=== PATIENT | male | born 1985 | race Hispanic/Latino ===

== ENCOUNTER 2020-04-07 08:52 | Inpatient (IN) | payer SELFPAY ==
--- NOTE | ~2020-04-07 | XR_ITS ---
EXAMINATION: XR chest 1V portable DATE: 04/07/2020 09:26 INDICATION: Epigastric abdominal pain. TECHNIQUE: A single frontal view of the chest was obtained. COMPARISON: None. FINDINGS: There is mild scarring at the lung apices. No pleural effusion or pneumothorax. The heart s ize is normal. There is plate and screw fixation of left clavicle. IMPRESSION: 1. Mild scarring at the lung apices. Reviewed, dictated and finalized at location A. ING HEALTHCARE PRACTITIONER
--- NOTE | ~2020-04-07 | CT_ITS ---
EXAMINATION: CT abdomen pelvis w con EXAM DATE: 04/07/2020 09:53 INDICATION: Abdominal pain, nausea. TECHNIQUE: Spiral CT of the abdomen and pelvis was performed following intravenous injection of 100 m L Omnipaque 350. Axial, coronal and sagittal images were reviewed. The dose-length product (DLP) fo r this examination was 187.43 mGy-cm. The exposure was tailored according to patient size (auto mA e xposure control), and iterative reconstruction (ASIR) was used as additional dose reduction technique . There is no prior study for comparison. FINDINGS: There is a region of circumferential transverse colonic wall thickening just beyond the hep atic flexure, about 5 cm in length, appearance most consistent with adenocarcinoma. The cecum is dist ended proximal to this, is likely causing partial colonic obstruction. Small amount of colonic stool distal to this. Small cluster of mesenteric lymph nodes adjacent to this measuring up to 7 x 9 mm in size, upper limits of normal (see axial image 65). Appendix not specifically identified. Small amount of free pelvic fluid likely reactive. The liver, spleen, adrenal glands and pancreas are unremarkable. Gallbladder is unremarkable. No bi liary obstruction. Portal and splenic veins are patent. Kidneys enhance symmetrically. There is no hydronephrosis. The prostate is unremarkable. The bladder is unremarkable. The stomach and small bowel are unremarkable. No free intraperitoneal gas. The heart is normal in size. There are no pericardial or pleural effusions. The lung bases are unremarkable. There are n o osteoblastic or osteolytic lesions identified. IMPRESSION: Focal transverse colonic circumferential narrowing appearance most consistent with adenoc arcinoma, causing partial colonic obstruction. Small mesenteric lymph nodes deep to this, possibly me tastatic. Consider colonoscopy for histologic correlation. Reviewed, dictated and finalized at location A. NG SQUAD WORKER IMPRESSION: Focal transverse colonic circumferential narrowing appearance most consistent with adenocarcinoma, causing partial colonic obstruction. Small mese nteric lymph nodes deep to this, possibly metastatic. Consider colonoscopy for histologic correlation.
[2020-04-07 08:59] VITALS: BP 132/58; PULSE 84; RESP 16; TEMP 36.9; O2SAT 100
--- NOTE | 2020-04-07 09:07 | ECG_ITS ---
Measurements Intervals [place] Rate: 75 P: 47 TN: 150 QRS: 49 QRSD: 90 T: 34 QT: 382 QTc: 429 Interpretive Statements SINUS RHYTHM POSSIBLE LEFT ATRIAL ENLARGEMENT INCOMPLETE RIGHT BUNDLE BRANCH BLOCK BASELINE ARTIFACT- I, II, AVR, V1 BORDERLINE ECG Electronically Signed On 04-07-2020 9:53:06 CHILDREN'S SERVICE WORKER by Tomas Ramirez D.O.
[2020-04-07] MEDS: ONDANSETRON INJ 4 MG/2 ML VIAL IV PUSH ×2 (09:18→20:04)
--- NOTE | 2020-04-07 09:20 | ED.GENADULT ---
HPI - General Adult General Chief complaint: Abdominal Pain <Tera Bernstein PA-C - Last Filed: 04/07/20 11:48> Stated complaint: abd pain <Tera Bernstein PA-C - Last Filed: 04/07/20 11:48> Time Seen by Provider: 04/07/20 09:06 <Tera Bernstein PA-C - Last Filed: 04/07/20 11:48> Source: patient and family (NIECE) <RACHELE Fonseca Last Filed: 04/07/20 11:48> Mode of arrival: ambulatory <Tera Bernstein PA-C - Last Filed: 04/07/20 11:48> Limitations: language barrier (mostly kazakh speaking- refused fruit loader cheikh) <Tera Bernstein PA-C - Last Filed: 04/07/20 11:48> History of Present Illness HPI narrative: Patient presents with chief complaint of intermittent lower abdominal pain that presents every 15 to 20 days and has been doing so over the past 3 to 6 months. Patient states the pain worsens with movement and he feels nausea and radiation of pain to his upper abdomen. Patient states that he took penicillin because he thought that it was for pain but it did not help. Patient states that he has not been evaluated for the symptoms as they normally resolve after 1 or 2 days. Patient states every time the symptoms represent they are more painful and this time there was so painful that he felt that he needed to come to the emergency department. He reports nausea but denies vomiting this morning. He denies fever, chills, cough, wounds or areas of infection, chest pain or shortness of breath. Patient has not taking anything else to alleviate his symptoms. Patient denies any medical history aside from shoulder repair 2 years ago. He denies any allergies or daily medications. <RACHELE Fonseca Last Filed: 04/07/20 11:48> Related Data Home medications: Home Medications Medication Instructions Recorded Confirmed No Home Medications 04/07/20 04/07/20 <Tera Bernstein PA-C - Last Filed: 04/07/20 11:48> Allergies/adverse reactions: Allergies Allergy/AdvReac Type Severity Reaction Status Date / Time No Known Allergies Allergy Verified 04/07/20 09:04 <Tera Bernstein PA-C - Last Filed: 04/07/20 11:48> Review of Systems Review of Systems: Narrative: CONSTITUTIONAL: Denies fever, chills, or sweats. EYES: Denies visual changes, redness, or discharge. ENT: Denies rhinorrhea, congestion, sore throat, or otalgia. CARDIOVASCULAR: Denies chest pain, palpitations, or edema. RESPIRATORY: Denies cough or dyspnea. GASTROINTESTINAL: Reports abdominal pain, nausea denies present vomiting, or diarrhea. GENITOURINARY: Denies dysuria or hematuria. SKIN: Denies rash or itching. MUSCULOSKELETAL: Denies back pain, joint pain, or myalgia. NEUROLOGIC: Denies headache, numbness, dizziness, or weakness. PSYCHIATRIC: Denies anxiety or depression. <Tera Bernstein PA-C - Last Filed: 04/07/20 11:48> Exam Narrative: Exam Narrative: GENERAL: Patient is thin and appears older than stated age, in no acute distress. HEAD: Normocephalic, atraumatic. EYES: PERRLA and EOMI. ENT: Nares clear, no rhinorrhea or epistaxis. Mucous membranes moist. Bilateral TMs pearly mayer nonbulging NECK: Supple. No adenopathy or masses. CHEST: Clear to auscultation. No respiratory distress. No wheezes rales or rhonchi HEART: Regular rate and rhythm. No murmur heard. Normal peripheral pulses. ABDOMEN: Soft, tender elevation of lower abdomen more so in the center lower abdomen, nondistended, hyper active bowel sounds diffusely. EXTREMITIES: Normal range of motion. No edema. SKIN: Warm, dry, no rash. NEURO: No focal deficits. Alert and oriented x3. PSYCH: Normal mood and affect. <Tera Bernstein PA-C - Last Filed: 04/07/20 11:48> Course OYSTER FLOATER/PA Physician Supervision For this patient encounter, I reviewed the OYSTER FLOATER or PA documentation, treatment plan, and medical decision making; and I had [id number] time with this patient. <Janine Manrique MD - Last Filed: 04/07/20 11:13> Vital Signs Vital signs:
[2020-04-07 09:31] LABS: Basophils Absolute Auto 0.1 K/mm3 (0.0-0.1); Basophils Percent Auto 0.5 % (0.2-1.2); Eosinophils Absolute Auto 0.1 K/mm3 (0-0.3); Eosinophils Percent Auto 0.6 % (0-4.4); Hematocrit 33.6 % (42.0-52.0); Hemoglobin 9.7 g/dL (14.0-18.0); Immature Granulocyte Absolute 0.06 K/mm3 (0.00-0.031); Immature Granulocyte Percent A 0.5 % (0-0.5); Immature Platelet Fraction Pct 13.5 % (0.9-11.2); Lymphocytes Absolute Auto 1.35 K/mm3 (0.9-3.2); Lymphocytes Percent Auto 11.9 % (18.3-44.2); Mean Corpuscular HGB Conc 28.9 g/dl (32-36); Mean Corpuscular Volume 69.4 fl (80-100); Monocytes Absolute Auto 0.7 K/mm3 (0.1-0.6); Monocytes Percent Auto 6.5 % (2.6-8.5); Platelet Count Result 197 k/mm3 (150-375); Red Blood Count 4.84 M/mm3 (4.6-6.20); Red Cell Distribution Width 15.1 % (11.5-14.5); White Blood Count 11.3 K/mm3 (4.5-10.0)
[2020-04-07 09:34] LABS: Alanine Aminotransferase 16 U/L (4-50); Albumin Level 4.2 g/dL (3.5-5.1); Alkaline Phosphatase 87 U/L (38-126); Anion Gap 9 mmol/L (8-16); Aspartate Amino Transferase 27 U/L (17-59); Bilirubin,Total 0.3 mg/dL (0.2-1.3); Blood Urea Nitrogen 12 mg/dL (9-20); Calcium 8.8 mg/dL (8.4-10.2); Carbon Dioxide 28 mmol/L (22-30); Chloride 103 mmol/L (98-107); Estimated CRCL calculation 91 ml/min; Estimated Glomerular Filt Rate > 60; Glucose 112 mg/dL (75-110); Lipase 48 U/L (23-300); Potassium 3.8 mmol/L (3.4-5.0); Sodium 140 mmol/L (137-145)
[2020-04-07 09:35] LABS: Hypochromasia 1+ (NORMAL)
[2020-04-07 09:36] LABS: Ovalocytes 1+ (NORMAL); Platelet Estimate Adequate (Adequate)
[2020-04-07 09:45] LABS: Troponin I < 0.012 ng/mL (0.000-0.034)
--- NOTE | 2020-04-07 11:07 | PCCCNOTE ---
Gave pt and his neice who interprets for him a PCP list in area that accepts new pts. Explained the importance of him having a PCP.
--- NOTE | 2020-04-07 11:20 | PC.NURSE ---
Called to give report on pt. Was told by Ricardo that she didnt think they got the SBAR and to tube it to her. SBAR was tubed and phone call to confirm to Lisandra
--- NOTE | 2020-04-07 11:30 | PC.NURSE ---
Report received from Rebeca in ER.
--- NOTE | 2020-04-07 11:43 | PC.NURSE ---
Pts cousin is Bruneian speaking and would like to be contacted when Dr is in room so she can translate to . Cousins number is [phone] ( Marrisal) Wifes number [phone] Sons number is [phone].
--- NOTE | 2020-04-07 11:55 | PM.IMHP ---
H&P: HPI History of Present Illness Date/Time: 04/07/20 11:55 Chief complaint: Abdominal Pain/ r/o Colonic Cancer/Obstruction Narrative: Nicholas Garrison is a 34 year old male with non significant PMHx presented to ED with abdominal pain for the last 3 months or so on and off, would go away, no changes in stool character, no melena, no hematochezia, no constipation or diarrhea, no weight loss. Patient decided to come to ED after the pain did not go away this time around and has had some nausea and vomiting. No fevers, no rigors, no chills, no sob, no cough, no sputum production. CT of abdomen was significant for area of stricture in the transverse colon and possible malignancy. Review of Systems Review of Systems: Narrative: Abdominal pain. Constitutional: Comments: no fevers, no rigors, no chills. Eyes: Comments: no vision changes. ENT: Comments: no ear ache, no nasal discharge, no throat pain. Cardiovascular: Comments: no chest pain. Respiratory: Comments: No sob, no cough, no sputum production. Gastrointestinal: Comments: abdominal pain colic like comes and goes for 3 months or so. Musculoskeletal: Comments: no joint pain or swelling. Integumentary/Breasts: Comments: no rashes. Neurologic: Comments: no sensory motor deficit. Hematologic/Lymphatic: Comments: No rashes. [facility] Social History Social History Smoking status: Never smoker Alcohol intake: never Substance use: never Gender identity (if verbalized by the patient): Male Sexual Orientation (if Verbalized by the Patient): Straight or Heterosexual Spiritual care concerns: No Meds Home Medications and Allergies Home Medications Medication Instructions Recorded Confirmed Type No Home Medications 04/07/20 04/07/20 History Allergies Allergy/AdvReac Type Severity Reaction Status Date / Time No Known Allergies Allergy Verified 04/07/20 18:44 Vital Signs Vital Signs - 24 hr 04/07/20 08:59 Temperature 98.5 F Pulse Rate 84 Respiratory Rate 16 Blood Pressure 132/58 L Pulse Oximetry 100 Exam Narrative: Exam Narrative: Lying in bed. Const: General: cooperative, healthy appearing, comfortable, no acute distress, alert, awake, Physically active and well groomed Nutritional Appearance: thin Orientation/consciousness: patient oriented x3 Limitations: no limitations and language barrier HENMT: Head: normal to inspection and normocephalic Ears: hearing grossly normal bilaterally General nose exam: Normal external nose present Face and sinus: normal facial exam Mouth: Yes Normal oral and palatal mucosa present Eyes: General: appearance normal, both eyes and all related structures Eyelids: eyelids normal Conjunctivae: conjunctivae normal Sclera: sclerae normal Pupils: Equal, round and reactive pupils present EOM: EOMs intact bilaterally Neck: Neck: full ROM, no lymphadenopathy, supple and no JVD Resp: Effort & Inspection: able to speak in complete sentences Auscultation: clear to auscultation bilaterally Cardio: Jugular venous distension: no JVD Rate: regular rate Rhythm: regular rhythm GI: Inspection: normal to inspection GI Palp: Yes Soft to palpation and Yes No hepatosplenomegaly present Skin: General skin exam: normal color Lesions: no lesions Rashes: no rashes Trauma: no lacerations or abrasions Wounds: no wounds Neuro: General: patient oriented x3 and CN's II-XI intact bilaterally Cranial nerves: Yes CN's II-XII intact bilaterally and Yes Equal, round and reactive pupils present Cognition (Neuro): normal cognition Speech: normal speech Gait exam (Neuro): Normal gait present Motor exam (neuro): 5/5 motor strength present throughout Sensory Exam: normal sensation Extrem: General: normal to inspection, full ROM and no pedal edema H&P: Results Labs Labs: Short CBC 04/07/20 Range/Units 09:15 WBC 11.3 H (4.5-10.0) K/mm3 Hgb 9.7 L (14.0-18.0) g/dL Hct 33.6 L (42.0-52.0) %
--- NOTE | 2020-04-07 12:32 | ADMGEN ---
This patient, Nicholas Garrison, was admitted to 3 Medical Room 340-01. Patient/family oriented to hospital policies and general routines including ID bracelet, bed and alarms, visiting hours, pain management, procedures, bathroom and other care routines, personal items, smoking policy, room service/diet, and visiting hours. Information on how to activate the Rapid Response Team has been discussed. Patient/Family are encouraged to report perceived risks to care and to ask questions if they do not understand what they are told or what they should do.
[2020-04-07 12:42] VITALS: BP 122/64; PULSE 71; RESP 16; TEMP 36.2; O2SAT 100
--- NOTE | 2020-04-07 13:04 | WPDGICN ---
Assessment and Plan Assessment and plan (1) Abnormal CT scan, colon: Code(s): R93.3 - Abnormal findings on diagnostic imaging of other parts of digestive tract Status: Acute Assessment and Plan: CT scan of the abdomen suggestive of possible tumor in the transverse colon with suggestion of possible partial obstruction. Plan is for her preparation today and colonoscopy tomorrow to assess this abnormality. If tumor confirmed ultimately surgery may need to be considered. (2) Abdominal pain: Qualifiers: Abdominal location: lower abdomen, unspecified Qualified Code(s): R10.30 - Lower abdominal pain, unspecified Code(s): R10.9 - Unspecified abdominal pain Status: Acute Assessment and Plan: Abdominal pain appears to correlate with findings on CT scan. Plan is to limit patient to a liquid diet at the present time. Further recommendations will be given endoscopy. (3) MIGUELINA (iron deficiency anemia): Code(s): D50.9 - Iron deficiency anemia, unspecified Status: Acute Assessment and Plan: Microcytic anemia suggestive of iron deficiency. Iron studies will be obtained as well as stool Hemoccult. Continue monitor hemoglobin closely. This also seems to correlate with findings seen CT scan. GI Consult Note Consult date/time: 04/07/20 13:04 HPI: Nicholas Garrison is a 34 year old male seen in evaluation at the request of the emergency room. 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 Typically will get a cramping like pain in the mid upper abdomen. This will last for 1-2 days. He then will have no symptoms however this will recur after about 2 weeks. Patient denies any obvious bleeding. He denies any obvious weight loss. Today upon presenting to the emergency room a CT scan revealed a mass in the transverse colon with apparent partial obstruction. There is a question of lymph node enlargement as well suggesting tumor mass. Patient's laboratory test suggest iron deficiency anemia. Patient's past history is significant for shoulder surgery several years ago. Family history is felt to be noncontributory.. Review of Systems Review of Systems: All systems reviewed & are unremarkable except as noted in HPI and below Meds Home Medications and Allergies Home Medications Medication Instructions Recorded Confirmed Type No Home Medications 04/07/20 04/07/20 History Allergies Allergy/AdvReac Type Severity Reaction Status Date / Time No Known Allergies Allergy Verified 04/07/20 09:04 Vital Signs Vital Signs - 24 hr 04/07/20 08:59 04/07/20 12:42 Temperature 98.5 F 97.1 F L Pulse Rate 84 71 Respiratory Rate 16 16 Blood Pressure 132/58 L 122/64 Pulse Oximetry 100 100 Exam Narrative: Exam Narrative: Physical exam reveals patient to be alert comfortable at rest. HEENT exam is unremarkable. He is anicteric. Lungs are clear to auscultation and percussion. Heart is without murmur or extra sounds. Abdominal exam bowel sounds are present soft nontender. No masses evident. Digital external rectal exam was reported negative in the emergency room. Results Labs CBC & Chem 7: 04/07/20 09:15 04/07/20 09:15 Labs: Short CBC 04/07/20 Range/Units 09:15 WBC 11.3 H (4.5-10.0) K/mm3 Hgb 9.7 L (14.0-18.0) g/dL Hct 33.6 L (42.0-52.0) % Plt Count 197 (150-375) k/mm3 BMP 04/07/20 09:15 Sodium 140 Potassium 3.8 Chloride 103 Carbon Dioxide 28 BUN 12 Creatinine 0.80 Glucose 112 H Calcium 8.8 Cardiac Enzymes 04/07/20 Range/Units 09:15 Troponin I < 0.012 (0.000-0.034) ng/mL Liver Function 04/07/20 Range/Units 09:15 Total Bilirubin 0.3 (0.2-1.3) mg/dL AST 27 (17-59) U/L ALT 16 (4-50) U/L Alkaline Phosphatase 87 (38-126) U/L Albumin 4.2 (3.5-5.1) g/dL
[2020-04-07] MEDS: SODIUM CHLORIDE 0.9% IV 1,000 ML 75 ML IV CONT (13:23)
[2020-04-07] MEDS: PEG (High)/E-LYTE SOLN 4,000 ML BTL 4000 ML PO (13:23)
[2020-04-07 14:41] LABS: Iron 35 ug/dL (49-181); Percent Iron Saturation 7 % (20-50)
[2020-04-07 15:02] LABS: Ferritin 4.15 ng/mL (17.9-464)
[2020-04-07 15:39] VITALS: BMI 20.4
--- NOTE | 2020-04-07 17:23 | PC.NURSE ---
Omarus used to confirm admission questions. Pt aware that he needs to complete the bowel prep. Consent forms completed and on chart. Reinforcement needed for completion of prep.
[2020-04-07 18:36] LABS: Add Urine Microscopic? YES; Appearance Urine Clear (Clear); Bilirubin Urine Negative (Negative); Blood Urine Negative (Negative); Color Urine Straw (Yellow); Glucose Urine UA Negative (Negative); Ketones Urine 1+ mg/dL (Negative); Leukocyte Esterase Ur Negative LEU/UL (Negative); Nitrate Urine Negative (Negative); Protein Urine Negative (Negative); RBC Urine 0-2 /hpf (0-2); Specific Grav Ur 1.023 (1.001-1.035); Squamous Epithelial Cell Urine Rare /hpf (Few); Urobilinogen Urine Negative mg/dL (<2.0); WBC Urine 0-3 /hpf
[2020-04-07] MEDS: HYDROmorphone HCL INJ (*CRX) 1 MG/ML SYR 0.5 MG IV PUSH (19:23)
[2020-04-07] MEDS: HEPARIN SODIUM 5,000 UNITS/ML VIAL 5000 UNITS SUB-Q (20:05)
[2020-04-07 23:42] VITALS: BP 124/72; PULSE 72; RESP 15; TEMP 36.2; O2SAT 100
[2020-04-08] VITALS (9 sets, daily range): BP systolic 86–138; BP diastolic 47–78; PULSE 65–90; RESP 16–19; TEMP 36.2–36.6; O2SAT 96–100
[2020-04-08] MEDS: SODIUM CHLORIDE 0.9% IV 1,000 ML 75 ML IV CONT (01:43)
[2020-04-08] MEDS: ONDANSETRON INJ 4 MG/2 ML VIAL IV PUSH (04:01)
[2020-04-08 08:27] LABS: Basophils Percent Auto 0.2 % (0.2-1.2); Hematocrit 34.6 % (42.0-52.0); Hemoglobin 9.8 g/dL (14.0-18.0); Immature Granulocyte Absolute 0.03 K/mm3 (0.00-0.031); Immature Granulocyte Percent A 0.3 % (0-0.5); Immature Platelet Fraction Pct 14.5 % (0.9-11.2); Lymphocytes Absolute Auto 1.17 K/mm3 (0.9-3.2); Lymphocytes Percent Auto 13.4 % (18.3-44.2); Mean Corpuscular HGB Conc 28.3 g/dl (32-36); Mean Corpuscular Hemoglobin 19.8 pg (26-34); Mean Corpuscular Volume 69.8 fl (80-100); Monocytes Absolute Auto 0.5 K/mm3 (0.1-0.6); Monocytes Percent Auto 6.2 % (2.6-8.5); Neutrophils Percent Auto 79.9 % (45.5-73.1); Platelet Count Result 201 k/mm3 (150-375); Red Blood Count 4.96 M/mm3 (4.6-6.20); Red Cell Distribution Width 15.3 % (11.5-14.5); White Blood Count 8.8 K/mm3 (4.5-10.0)
[2020-04-08 08:36] LABS: Anion Gap 10 mmol/L (8-16); Blood Urea Nitrogen 11 mg/dL (9-20); Carbon Dioxide 27 mmol/L (22-30); Chloride 101 mmol/L (98-107); Estimated CRCL calculation 103 ml/min; Estimated Glomerular Filt Rate > 60; Glucose 121 mg/dL (75-110); Potassium 4.4 mmol/L (3.4-5.0); Sodium 138 mmol/L (137-145)
[2020-04-08 08:50] LABS: Hypochromasia 2+ (NORMAL); Platelet Estimate Adequate (Adequate)
[2020-04-08 09:01] LABS: IFOB Positive Control Positive; Immunochemical Fecal Occult Bl Positive (N)
--- NOTE | 2020-04-08 09:04 | WPDANESEPPF ---
Anes - Initial Pre Proc Eval Procedure: Operation Date: 04/08/20 11:30 Proposed Procedures p Colonoscopy - Janes Cisse MD Date/Time: 04/08/20 09:04 Pre Op Diagnosis: Abdominal Pain/ r/o Colonic Cancer/Obstruction Patient Data Age: 34 Gender: M Height: 1.65 m Weight: 55.6 kg Last Vital Signs Temp 36.3 C L 04/08/20 06:54 Pulse 82 04/08/20 06:54 Resp 16 04/08/20 06:54 BP 118/69 04/08/20 06:54 Pulse Ox 100 04/08/20 06:54 Allergies Allergy/AdvReac Type Severity Reaction Status Date / Time No Known Allergies Allergy Verified 04/07/20 18:44 Home Medications Medication Instructions Recorded Confirmed Type No Home Medications 04/07/20 04/07/20 History Laboratory Tests 04/07/20 04/07/20 04/07/20 09:15 09:15 12:50 WBC 11.3 K/mm3 H K/mm3 (4.5-10.0) RBC 4.84 M/mm3 M/mm3 (4.6-6.20) Hgb 9.7 g/dL L g/dL (14.0-18.0) Hct 33.6 % L % (42.0-52.0) MCV 69.4 fl L fl (80-100) MCH 20.0 pg L pg (26-34) MCHC 28.9 g/dl L g/dl (32-36) RDW 15.1 % H % (11.5-14.5) Plt Count 197 k/mm3 k/mm3 (150-375) MPV TNP Immature Gran % (Auto) 0.5 % % (0-0.5) Neut % (Auto) 80.0 % H % (45.5-73.1) Lymph % (Auto) 11.9 % L % (18.3-44.2) [place] % (Auto) 6.5 % % (2.6-8.5) Eos % (Auto) 0.6 % % (0-4.4) Baso % (Auto) 0.5 % % (0.2-1.2) Lymph # (Auto) 1.35 K/mm3 K/mm3 (0.9-3.2) [place] # (Auto) 0.7 K/mm3 H K/mm3 (0.1-0.6) Eos # (Auto) 0.1 K/mm3 K/mm3 (0-0.3) Baso # (Auto) 0.1 K/mm3 K/mm3 (0.0-0.1) Abs Immat Gran (auto) 0.06 K/mm3 H K/mm3 (0.00-0.031) Absolute Neuts (auto) 9.0 K/mm3 H K/mm3 (1.3-6.7) Absolute Nucleated RBC 0.0 K/mm3 K/mm3 (0.0-0.012) Nucleated RBC % 0.0 % % (0.0-0.2) Platelet Estimate Adequate (Adequate) % Immature Plt Fraction 13.5 % H % (0.9-11.2) Hypochromasia 1+ (NORMAL) Ovalocytes 1+ (NORMAL) Sodium 140 mmol/L mmol/L (137-145) Potassium 3.8 mmol/L mmol/L (3.4-5.0) Chloride 103 mmol/L mmol/L (98-107) Carbon Dioxide 28 mmol/L mmol/L (22-30) Anion Gap 9 mmol/L mmol/L (8-16) BUN 12 mg/dL mg/dL (9-20) Creatinine 0.80 mg/dL mg/dL (0.7-1.3) Estim Creat Clear Calc 91 ml/min ml/min Estimated GFR > 60 (59 - ) Glucose 112 mg/dL H mg/dL (75-110) Calcium 8.8 mg/dL mg/dL (8.4-10.2) Iron 35 ug/dL L ug/dL (49-181) TIBC 486 ug/dL ug/dL (265-497) % Saturation 7 % L % (20-50) Total Bilirubin 0.3 mg/dL mg/dL (0.2-1.3) Ferritin 4.15 ng/mL L ng/mL (17.9-464) AST 27 U/L U/L (17-59) ALT 16 U/L U/L (4-50) Alkaline Phosphatase 87 U/L U/L (38-126) Troponin I < 0.012 ng/mL ng/mL (0.000-0.034) Total Protein 8.0 g/dL g/dL (6.3-8.2) Albumin 4.2 g/dL g/dL (3.5-5.1) Lipase 48 U/L U/L (23-300) Urine Color Urine Appearance Urine pH Ur Specific [place] Urine Protein Urine Glucose (UA) Urine Ketones Ur Blood (Man) Urine Nitrate Urine Bilirubin Urine Urobilinogen Leukocyte Esterase Rfl Urine RBC Urine WBC Ur Squamous Epith Cells Stl Occult Blood (IFOB) 04/07/20 04/08/20 04/08/20 18:24 06:45 08:11 WBC 8.8 K/mm3 K/mm3 (4.5-10.0) RBC 4.96 M/mm3 M/mm3 (4.6-6.20) Hgb 9.8 g/dL L g/dL (14.0-18.0) Hct 34.6 % L % (42.0-52.0) MCV 69.8 fl L fl (80-100) MCH 19.8 pg L pg (26-34) MCHC 2
[2020-04-08] MEDS: HYDROmorphone HCL INJ (*CRX) 1 MG/ML SYR 0.5 MG IV PUSH ×2 (09:37→20:23)
--- NOTE | 2020-04-08 09:59 | PC.NURSE ---
Pt to GI lab per wheelchair. Report to FRED Bradley.
[2020-04-08] MEDS: LACTATED RINGERS 1,000 ML 150 ML IV CONT (10:12)
--- NOTE | 2020-04-08 10:14 | SUR.PREOP ---
Omarus used to pre op patient and used with Dr Valle for anesthesia H&P.
--- NOTE | 2020-04-08 11:50 | PM.IMPN ---
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 Supportive care IV fluids NPO past midnight. (2) Colon obstruction: Code(s): K56.609 - Unspecified intestinal obstruction, unspecified as to partial versus complete obstruction Status: Acute Assessment and Plan: Mass in the transverse colon. (3) MIGUELINA (iron deficiency anemia): Code(s): D50.9 - Iron deficiency anemia, unspecified Status: Chronic Assessment and Plan: Likely secondary to mass. (4) Abdominal pain: Qualifiers: Abdominal location: lower abdomen, unspecified Qualified Code(s): R10.30 - Lower abdominal pain, unspecified Code(s): R10.9 - Unspecified abdominal pain Status: Acute Assessment and Plan: Pain management. Supportive care. Subjective Date/time seen: 04/08/20 11:50 I feel fine. Review of Systems Review of Systems: Narrative: Patient presented to ED with abdominal pain. Constitutional: Comments: No fevers, no chills, no rigors. Eyes: Comments: no vision changes. ENT: Comments: no ear ache, no nasal discharge no nasal congestion. Cardiovascular: Comments: no chest pain, no leg swelling. Respiratory: Comments: no cough, no sputum production. Gastrointestinal: Comments: abdominal pain. Musculoskeletal: Comments: no joint pain, muscle aches. Integumentary/Breasts: Comments: no rashes. Neurologic: Comments: no sensorymotor deficit. Hematologic/Lymphatic: Comments: no LAP. Exam Narrative: Exam Narrative: Lying in bed. Const: General: cooperative, healthy appearing, comfortable, no acute distress, alert, awake and Physically active Nutritional Appearance: thin Orientation/consciousness: patient oriented x3 Limitations: no limitations and language barrier Other: Non Chinese speaker. HENMT: Head: normal to inspection and normocephalic Ears: hearing grossly normal bilaterally General nose exam: Normal external nose present Face and sinus: normal facial exam Mouth: Yes Normal oral and palatal mucosa present Eyes: General: appearance normal, both eyes and all related structures Pupils: Equal, round and reactive pupils present EOM: EOMs intact bilaterally Neck: Neck: normal visual inspection, full ROM, no lymphadenopathy, supple and no JVD Resp: Effort & Inspection: normal respiratory effort Auscultation: clear to auscultation bilaterally Cardio: Jugular venous distension: no JVD Rate: regular rate Rhythm: regular rhythm Heart sounds: S1 normal heart sound present and S2 normal heart sound present GI: Inspection: normal to inspection GI Palp: Yes Soft to palpation and Yes No hepatosplenomegaly present Skin: General skin exam: normal color Lesions: no lesions Rashes: no rashes Wounds: no wounds Neuro: General: patient oriented x3 and CN's II-XI intact bilaterally Cranial nerves: Yes CN's II-XII intact bilaterally and Yes Equal, round and reactive pupils present Cognition (Neuro): normal cognition Speech: normal speech Gait exam (Neuro): Normal gait present Motor exam (neuro): 5/5 motor strength present throughout Extrem: General: normal to inspection, full ROM and no pedal edema Objective Data Vital Signs Vital Signs: Vital Signs - 24 hr 04/07/20 12:42 04/07/20 23:42 04/08/20 06:54 Temperature 97.1 F L 97.1 F L 97.4 F L Pulse Rate 71 72 82 Respiratory Rate 16 15 16 Blood Pressure 122/64 124/72 118/69 Pulse Oximetry 100 100 100 04/08/20 10:14 04/08/20 11:18 04/08/20 11:28 Temperature 97.3 F L 97.8 F Pulse Rate 79 90 82 Respiratory Rate 17 18 18 Blood Pressure 136/71 122/68 86/47 L Pulse Oximetry 100 100 100 04/08/20 11:38 Temperature Pulse Rate 78 Respiratory Rate 18 Blood Pressure 110/64 Pulse Oximetry Intake/Output Intake/Output: I
--- NOTE | 2020-04-08 12:17 | SUR.PHASEII ---
Stratus used in post op. Patient denies pain at this time. Dr Cisse and Dr Yeager both at bedside using Stratus to interpret upcoming surgical plans.
--- NOTE | 2020-04-08 12:23 | PC.NURSE ---
Pt returned from GI lab.
--- NOTE | 2020-04-08 12:42 | PM.CNGS ---
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 Imaging and endoscopy suggests that this is partially obstructing. We will hold off on mechanical bowel prep as he just had mechanical prep for colonoscopy yesterday and had some vomiting associated with it. He can have clear liquids and then NPO after midnight. We will go ahead and give oral antibiotics and IV antibiotics preoperatively. I discussed through the interpretive system, [employer], the nature of his disease and the proposed treatment. The usual time in the hospital an usual time of recovery as well as time off work were discussed. All questions were answered. He voices understanding and agrees to go ahead. Plan to proceed with hand access laparoscopic right colectomy under general anesthesia tomorrow afternoon. Discuss this with Dr. Cisse as well. (2) MIGUELINA (iron deficiency anemia): Code(s): D50.9 - Iron deficiency anemia, unspecified Status: Chronic Assessment and Plan: Will need iron supplementation postop. Doubt patient will require transfusion. 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 He has very limited angulation and all communications were conducted through the [employer] drop machine operator system. He has had off and on episodes of abdominal pain and came to the emergency room. He was noted there to be anemic. CT scan suggested a proximal transverse near obstructing colon cancer. He was noted to have guaiac-positive stools and this morning underwent colonoscopy by Dr. Cisse. I spoke with Dr. Cisse after the procedure. He was not able to traverse beyond the tumor which was in the proximal transverse colon. There was a fairly pinpoint opening suggesting high-grade partial obstruction but not complete colonic obstruction. The patient currently has no abdominal pain nausea or vomiting. He was seen in the GI lab after his procedure but was awake and alert and conversant. He has not had any previous abdominal surgery. Review of Systems Review of Systems: All systems reviewed & are unremarkable except as noted in HPI and below ( Those noted in HPI) Constitutional: Constitutional: Denies chills, Reports fatigue, Denies fever(s), Reports lethargy and Denies night sweats Gastrointestinal: Gastrointestinal: Reports abdominal pain, Reports bloating, Reports GI cramping, Reports nausea and Reports vomiting PMFSH Past Medical History Medical History Colon obstruction MIGUELINA (iron deficiency anemia) Social History Social History Smoking status: Never smoker Alcohol intake: never Substance use: never Gender identity (if verbalized by the patient): Male Sexual Orientation (if Verbalized by the Patient): Straight or Heterosexual Spiritual care concerns: No Meds Home Medications and Allergies Home Medications Medication Instructions Recorded Confirmed Type No Home Medications 04/07/20 04/07/20 History Allergies Allergy/AdvReac Type Severity Reaction Status Date / Time No Known Allergies Allergy Verified 04/07/20 18:44 Vital Signs Vital Signs - 24 hr 04/07/20 23:42 04/08/20 06:54 04/08/20 10:14 Temperature 36.2 C L 36.3 C L 36.3 C L Pulse Rate 72 82 79 Respiratory Rate 15 16 17 Blood Pressure 124/72 118/69 136/71 Pulse Oximetry 100 100 100 04/08/20 11:18 04/08/20 11:28 04/08/20 11:38 Temperature 36.6 C Pulse Rate 90 82 78 Respiratory Rate 18 18 18 Blood Pressure 122/68 86/47 L 110/64 Pulse Oximetry 100 100 100 04/08/20 11
[2020-04-08] MEDS: KCL 20 MEQ/D5/0.9% SOD CHL 1,000 ML 80 ML IV CONT (13:35)
[2020-04-08] MEDS: ERYTHROMYCIN 250 MG TABLET 1000 MG PO ×2 (13:36→15:48)
[2020-04-08] MEDS: NEOMYCIN SULFATE 500 MG TAB 1000 MG PO ×2 (13:36→15:44)
[2020-04-08] MEDS: HEPARIN SODIUM 5,000 UNITS/ML VIAL 5000 UNITS SUB-Q (20:15)
[2020-04-09] VITALS (11 sets, daily range): BP systolic 105–130; BP diastolic 53–74; PULSE 62–94; RESP 11–20; TEMP 36.1–37.1; O2SAT 100; BMI 20.4
[2020-04-09] MEDS: NEOMYCIN SULFATE 500 MG TAB 1000 MG PO (00:21)
[2020-04-09] MEDS: ERYTHROMYCIN 250 MG TABLET 1000 MG PO (00:22)
[2020-04-09] MEDS: KCL 20 MEQ/D5/0.9% SOD CHL 1,000 ML 80 ML IV CONT (01:52)
[2020-04-09 06:01] LABS: Hematocrit 30.6 % (42.0-52.0); Hemoglobin 8.7 g/dL (14.0-18.0); Immature Platelet Fraction Pct 11.5 % (0.9-11.2); Mean Corpuscular HGB Conc 28.4 g/dl (32-36); Mean Corpuscular Hemoglobin 19.5 pg (26-34); Mean Corpuscular Volume 68.5 fl (80-100); Platelet Count Result 175 k/mm3 (150-375); Red Blood Count 4.47 M/mm3 (4.6-6.20); Red Cell Distribution Width 15.2 % (11.5-14.5); White Blood Count 8.4 K/mm3 (4.5-10.0)
[2020-04-09 06:03] LABS: Anion Gap 3 mmol/L (8-16); Blood Urea Nitrogen 9 mg/dL (9-20); Calcium 8.3 mg/dL (8.4-10.2); Carbon Dioxide 31 mmol/L (22-30); Chloride 104 mmol/L (98-107); Estimated CRCL calculation 81 ml/min; Estimated Glomerular Filt Rate > 60; Glucose 128 mg/dL (75-110); Potassium 4.1 mmol/L (3.4-5.0); Sodium 138 mmol/L (137-145)
--- NOTE | 2020-04-09 08:31 | WPDANESPN ---
Anes - Prog Note Post-Op Date/Time: 04/09/20 08:31 Cardiovascular status: normal Respiratory status: normal Airway patency: baseline Mental status: baseline Post-Op hydration status: normal Vital Signs: Last Vital Signs Temp 36.4 C 04/09/20 05:10 Pulse 66 04/09/20 05:10 Resp 18 04/09/20 05:10 BP 107/68 04/09/20 05:10 Pulse Ox 100 04/09/20 05:10 Pain Score (VAS): 0 I/O: Intake & Output 04/08/20 04/09/20 04/09/20 23:59 07:59 15:59 Intake Total 550 1290 Output Total 1600 Balance -1050 1290 Laboratory Tests 04/09/20 05:39 04/09/20 05:39 04/08/20 04/08/20 04/08/20 06:45 08:11 08:11 WBC 8.8 RBC 4.96 Hgb 9.8 L Hct 34.6 L MCV 69.8 L MCH 19.8 L MCHC 28.3 L RDW 15.3 H Plt Count 201 MPV TNP Immature Gran % (Auto) 0.3 Neut % (Auto) 79.9 H Lymph % (Auto) 13.4 L Barber % (Auto) 6.2 Eos % (Auto) 0.0 Baso % (Auto) 0.2 Lymph # (Auto) 1.17 Barber # (Auto) 0.5 Eos # (Auto) 0.0 Baso # (Auto) 0.0 Abs Immat Gran (auto) 0.03 Absolute Neuts (auto) 7.0 H Absolute Nucleated RBC 0.0 Nucleated RBC % 0.0 Platelet Estimate Adequate % Immature Plt Fraction 14.5 H Hypochromasia 2+ Sodium 138 Potassium 4.4 Chloride 101 Carbon Dioxide 27 Anion Gap 10 BUN 11 Creatinine 0.70 Estim Creat Clear Calc 103 Estimated GFR > 60 Glucose 121 H Calcium 9.0 Carcinoembryonic Ag Stl Occult Blood (IFOB) Positive H Blood Type Antibody Screen 04/08/20 04/08/20 04/09/20 08:11 12:50 05:39 WBC 8.4 RBC 4.47 L Hgb 8.7 L Hct 30.6 L MCV 68.5 L MCH 19.5 L MCHC 28.4 L RDW 15.2 H Plt Count 175 MPV TNP Immature Gran % (Auto) Neut % (Auto) Lymph % (Auto) Barber % (Auto) Eos % (Auto) Baso % (Auto) Lymph # (Auto) Barber # (Auto) Eos # (Auto) Baso # (Auto) Abs Immat Gran (auto) Absolute Neuts (auto) Absolute Nucleated RBC Nucleated RBC % Platelet Estimate % Immature Plt Fraction 11.5 H Hypochromasia Sodium Potassium Chloride Carbon Dioxide Anion Gap BUN Creatinine Estim Creat Clear Calc Estimated GFR Glucose Calcium Carcinoembryonic Ag 1.0 Stl Occult Blood (IFOB) Blood Type A Positive Antibody Screen Negative 04/09/20 05:39 WBC RBC Hgb Hct MCV MCH MCHC RDW Plt Count MPV Immature Gran % (Auto) Neut % (Auto) Lymph % (Auto) Barber % (Auto) Eos % (Auto) Baso % (Auto) Lymph # (Auto) Barber # (Auto) Eos # (Auto) Baso # (Auto) Abs Immat Gran (auto) Absolute Neuts (auto) Absolute Nucleated RBC Nucleated RBC % Platelet Estimate % Immature Plt Fraction Hypochromasia Sodium 138 Potassium 4.1 Chloride 104 Carbon Dioxide 31 H Anion Gap 3 L BUN 9 Creatinine 0.90 Estim Creat Clear Calc 81 Estimated GFR > 60 Glucose 128 H Calcium 8.3 L Carcinoembryonic Ag Stl Occult Blood (IFOB) Blood Type Antibody Screen Post-procedural complaints: none Patient Feedback: Patient satisfied with anesthetic care.
--- NOTE | 2020-04-09 10:29 | WPDHPUPDATE1 ---
History and Physical Update Update Date/Time: 04/09/20 10:29 History and Physical has been reviewed, including an updated exam of the patient. There are NO changes in the patient's condition. Risks, benefits, and alternatives have been discussed and questions answered. Patient agrees to proceed with procedure.
--- NOTE | 2020-04-09 12:38 | PC.NURSE ---
Patient to OR per bed. Report to FRED Go.
[2020-04-09] MEDS: LACTATED RINGERS 1,000 ML 30 ML IV CONT ×2 (13:15→18:02)
[2020-04-09] MEDS: ALVIMOPAN 12 MG CAPSULE PO (13:16)
[2020-04-09] MEDS: KETOROLAC 15 MG/ML VIAL (*BKC) IV PUSH (13:16)
[2020-04-09] MEDS: ACETAMINOPHEN 500 MG TABLET 1000 MG PO (13:18)
--- NOTE | 2020-04-09 13:18 | WPDANESEPPF ---
Anes - Initial Pre Proc Eval Procedure: Operation Date: 04/08/20 11:30 Proposed Procedures p Colonoscopy - Janes Cisse MD Operation Date: 04/09/20 14:00 Proposed Procedures p Hand Access Laparoscopic Right Colectomy - Mehdi Yeager MD Date/Time: 04/09/20 13:18 Surgeon: José Miguel Haider MD Pre Op Diagnosis: Abdominal Pain/ r/o Colonic Cancer/Obstruction Patient Data Age: 34 Gender: M Height: 1.65 m Weight: 55.6 kg Last Vital Signs Temp 36.4 C 04/09/20 05:10 Pulse 66 04/09/20 05:10 Resp 18 04/09/20 05:10 BP 107/68 04/09/20 05:10 Pulse Ox 100 04/09/20 05:10 Allergies Allergy/AdvReac Type Severity Reaction Status Date / Time No Known Allergies Allergy Verified 04/09/20 12:59 Home Medications Medication Instructions Recorded Confirmed Type No Home Medications 04/07/20 04/07/20 History Laboratory Tests 04/08/20 04/09/20 04/09/20 12:50 05:39 05:39 WBC 8.4 K/mm3 K/mm3 (4.5-10.0) RBC 4.47 M/mm3 L M/mm3 (4.6-6.20) Hgb 8.7 g/dL L g/dL (14.0-18.0) Hct 30.6 % L % (42.0-52.0) MCV 68.5 fl L fl (80-100) MCH 19.5 pg L pg (26-34) MCHC 28.4 g/dl L g/dl (32-36) RDW 15.2 % H % (11.5-14.5) Plt Count 175 k/mm3 k/mm3 (150-375) MPV TNP % Immature Plt Fraction 11.5 % H % (0.9-11.2) Sodium 138 mmol/L mmol/L (137-145) Potassium 4.1 mmol/L mmol/L (3.4-5.0) Chloride 104 mmol/L mmol/L (98-107) Carbon Dioxide 31 mmol/L H mmol/L (22-30) Anion Gap 3 mmol/L L mmol/L (8-16) BUN 9 mg/dL mg/dL (9-20) Creatinine 0.90 mg/dL mg/dL (0.7-1.3) Estim Creat Clear Calc 81 ml/min ml/min Estimated GFR > 60 (59 - ) Glucose 128 mg/dL H mg/dL (75-110) Calcium 8.3 mg/dL L mg/dL (8.4-10.2) Blood Type A Positive Antibody Screen Negative Patient hx anesthesia problems: none Family hx anesthesia problems: none PMFSH Past Medical History Medical History Colon obstruction MIGUELINA (iron deficiency anemia) Social History Social History Smoking status: Never smoker Alcohol intake: never Substance use: never Gender identity (if verbalized by the patient): Male Sexual Orientation (if Verbalized by the Patient): Straight or Heterosexual Spiritual care concerns: No Anes - Eval Final PreProcedure Day of Procedure 04/09/20 13:18 Patient weight: normal Heart: regular rate and rhythm Lungs: clear to auscultation and normal air movement Airway: Mallampati scale class II Neurological: alert and oriented Last oral intake: >/= 8 hours ASA classification: III Emergent: no Anesthetic plan: proceed Anesthesia type and monitoring: general ETT and standard monitoring Other findings: PEDRO block Informed Consent: The patient's anesthetic plan and its attendant risks and benefits were discussed with the patient/family/POA. Questions were solicited and answers provided to the satisfaction of the patient/family/POA.
--- NOTE | 2020-04-09 13:19 | WPDANESPNB ---
Anes - Peripheral Nerve Block Date/Time: 04/09/20 13:19 I have discussed with the patient/family/POA the placement of a peripheral nerve block for post-operative pain management, including associated risks, benefits, complications, and side effects. Alternative methods of post-operative analgesia were detailed. Questions were solicited and answers provided to the satisfaction of the patient/family/POA. Time-Out: A pre-procedural Time-Out was completed immediately before starting the procedure and confirmed: Patient Identification, Site, Procedure, Patient Position and the Availability of Requisite Equipment. Clinical Indications: Acute post-operative pain management requested by the operative surgeon. Nerve Block Insertion Note Anes-nerve block: other (b/l T8 PEDRO block) Patient position: other (sitting) Skin prep: chlorhexidine Needle: 22 gauge, stimulating, insulated echogenic needle. Needle length: 80 mm Technique: ultrasound Injectate: bupivacaine 0.25% with epi 5 mcg/ml (20cc for each side) Observations: tolerated well Complications: none Procedure start time:: 1308 Procedure end time:: 1314
--- NOTE | 2020-04-09 13:30 | PM.IMPN ---
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 Hem/Onc consult Supportive care Follow surgery recs NPO (2) Colon obstruction: Code(s): K56.609 - Unspecified intestinal obstruction, unspecified as to partial versus complete obstruction Status: Acute Assessment and Plan: Resolved S/p Laparoscopic surgery. (3) MIGUELINA (iron deficiency anemia): Code(s): D50.9 - Iron deficiency anemia, unspecified Status: Chronic Assessment and Plan: Likely secondary to tumor in the proximal transverse colon. (4) Abdominal pain: Qualifiers: Abdominal location: lower abdomen, unspecified Qualified Code(s): R10.30 - Lower abdominal pain, unspecified Code(s): R10.9 - Unspecified abdominal pain Status: Acute Assessment and Plan: Resolved. Subjective Date/time seen: 04/09/20 13:30 I feel fine. Review of Systems Review of Systems: Narrative: Patient is s/p surgery. Denies any discomfort at the present time. Constitutional: Comments: no fevers, no rigors, no chills. Eyes: Comments: no vision changes. ENT: Comments: no ear ache, no nasal discharge or congestion, no throat pain. Cardiovascular: Comments: no chest pain, no leg swelling. Respiratory: Comments: no sob, no cough, no sputum production. Gastrointestinal: Comments: s/p abdominal surgery. Musculoskeletal: Comments: no joint pain or swelling, no muscle aches. Integumentary/Breasts: Comments: no rashes. Neurologic: Comments: no sensory motor deficit. Hematologic/Lymphatic: Comments: no LAP Exam Narrative: Exam Narrative: Was to see patient to the floor but still in OR. Patient seen after came back to the floor s/p surgery. Const: General: cooperative, healthy appearing, comfortable, no acute distress, alert, awake and Physically active Nutritional Appearance: thin Orientation/consciousness: patient oriented x3 Limitations: no limitations and language barrier Other: Other than Faroese speaker. HENMT: Head: normal to inspection and normocephalic Ears: hearing grossly normal bilaterally General nose exam: Normal external nose present Face and sinus: normal facial exam Mouth: Yes Normal oral and palatal mucosa present Eyes: General: appearance normal, both eyes and all related structures Pupils: Equal, round and reactive pupils present EOM: EOMs intact bilaterally Neck: Neck: full ROM, no lymphadenopathy and no JVD Resp: Effort & Inspection: normal respiratory effort Auscultation: clear to auscultation bilaterally Cardio: Jugular venous distension: no JVD Heart sounds: S1 normal heart sound present and S2 normal heart sound present GI: Inspection: other (Surgical wound in the epigastric area.) GI Palp: Yes Soft to palpation and Yes No hepatosplenomegaly present Skin: Wounds: wounds noted (Surgical wound in the epigastric area.) Neuro: Cranial nerves: Yes CN's II-XII intact bilaterally and Yes Equal, round and reactive pupils present Cognition (Neuro): normal cognition Speech: normal speech Motor exam (neuro): 5/5 motor strength present throughout Sensory Exam: normal sensation Extrem: General: full ROM, no joint enlargement and no pedal edema Objective Data Vital Signs Vital Signs: Vital Signs - 24 hr 04/08/20 14:00 04/08/20 22:03 04/08/20 23:59 Temperature 97.2 F L 97.8 F 97.1 F L Pulse Rate 65 85 70 Respiratory Rate 18 18 18 Blood Pressure 116/68 127/71 112/70 Pulse Oximetry 100 100 96 04/09/20 05:10 Temperature 97.6 F Pulse Rate 66 Respiratory Rate 18 Blood Pressure 107/68 Pulse Oximetry 100 Intake/Output Intake/Output: Intake & Output 04/06/20 04/07/20 04/08/20 04/09/20 23:59 23:59 23:59 23:59 Intake Total 800 3130 1290 Output Total 375 2600 Balance 151 088 3531 Meds/Results Medic
[2020-04-09] MEDS: ceFAZolin 2 GM/D5W 50 ML 2 GM/50 ML BAG IVPB (15:20)
[2020-04-09] MEDS: metroNIDAZOLE 500 MG/ISO 100ML 500 MG/100 ML BAG 100 MG IVPB (15:36)
--- NOTE | 2020-04-09 18:11 | PM.PROC ---
Procedure Note - Detailed Date of procedure: 04/09/20 Pre-op diagnosis: Transverse colon neoplasm Transverse colon neoplasm Post-op diagnosis: same Procedure performed: Hand access laparoscopic right colectomy with hand-sewn ileo transverse anastomosis Description of procedure: The patient was taken to surgery and induced into general anesthesia. The abdomen was prepped and draped. The proposed hand access port incision in the mid abdomen was marked on the skin. This was a midline incision above 6 cm in length above the umbilicus. Local was infiltrated in the area of the anticipated incision and in the subcutaneous. Incision was made and dissection was carried down through the subcutaneous and the fascia was exposed. Additional local was infiltrated into the fascia. The fascia was opened in the midline and extended the length of the wound. The peritoneum was opened as well. I palpated the area around the incision looking for any adhesions. There were none. The Cesar wound guard was then placed. The GelPort was placed. With the hand in the abdomen, I placed a 5 mm port in the right lower quadrant just above the inguinal ligament. Local anesthesia was infiltrated prior to placement of each of the trocars as well. With this port in place, the camera was inserted. Another 5 mm port in the left abdomen was placed. CO2 was insufflated and we exposed the distal ileum and cecum. The base of the cecum was scored with the LigaSure. This allowed to gain access to the retroperitoneum. I scored the peritoneum at the base of the distal ileum as well. Retroperitoneal dissection up to the transverse mesocolon was carried out. The duodenum was carefully avoided. I then re-exposed the mesentery to the distal ileum. Using the LigaSure I divided the omentum here up to the ileum where we anticipated the proximal line of resection. I then dissected out the ileocolic artery near its origin. It was also divided with the LigaSure. I then divided the mesentery to the ascending colon up to the hepatic flexure. This was done with the LigaSure as well. The lateral peritoneal attachments to the cecum and ascending colon were then divided. The tumor was easily palpated. It was in the proximal transverse colon just beyond the splenic flexure as suggested on previous imaging and colonoscopy. The hepatocolic ligament was divided and some of the transverse colon mesentery was divided. We then stopped insufflation and removed the GelPort. The distal ileum and ascending colon were eviscerated. The tumor was eviscerated as was more distal transverse colon. I was then able to expose the greater curvature of the stomach and the greater omentum in the area of the transverse colon. We gained access to the lesser sac and divided the greater omentum from the stomach. I further exposed the transverse colon mesentery. There were numerous lymph nodes associated with the blood supply to this area of the colon that were suspicious for metastatic disease. Using the LigaSure I carefully dissected and divided the right branch of the middle colic artery and divided the remaining vessels to the proximal transverse colon again using the LigaSure. We finally divided the mesentery to more distal transverse colon with the LigaSure. The distal ileum and the proximal transverse colon were then divided with TLC 75 stapler. Two separate firings were done. The specimen was passed off to pathology. I checked to make sure the mesentery to the distal ileum was not twisted. The distal ileum and proximal transverse colon were laid [id number] in proximity. Noncrushing bowel clamps were placed just distal to the transverse colon and just proximal to the ileum to avoid further contamination. The posterior outer layer of interrupted 4 0 silk Lembert sutures were then placed. An enterotomy was made in the distal ileum and a colotomy made in the proximal transverse colon corresponding to each other. The posterior
--- NOTE | 2020-04-09 19:01 | PC.NURSE ---
Patient returned from OR per bed. Report received from FRED Gonzalez.
[2020-04-09] MEDS: LACTATED RINGERS 1,000 ML 80 ML IV CONT (19:43)
[2020-04-09] MEDS: IBUPROFEN IV 800 MG/200 ML 800 MG/200 ML BAG 400 MG IVPB (19:44)
[2020-04-09] MEDS: FAMOTIDINE 20 MG/2 ML VIAL IV PUSH (21:38)
[2020-04-10] MEDS: IBUPROFEN IV 800 MG/200 ML 800 MG/200 ML BAG 400 MG IVPB (00:38)
[2020-04-10 00:40] VITALS: BP 136/68; PULSE 68; RESP 12; TEMP 36.6; O2SAT 100
[2020-04-10 05:24] VITALS: BP 117/68; PULSE 67; RESP 12; TEMP 36; O2SAT 100
[2020-04-10 06:12] LABS: Hematocrit 31.2 % (42.0-52.0); Immature Platelet Fraction Pct 14.8 % (0.9-11.2); Mean Corpuscular HGB Conc 28.8 g/dl (32-36); Mean Corpuscular Hemoglobin 19.6 pg (26-34); Platelet Count Result 174 k/mm3 (150-375); Red Blood Count 4.59 M/mm3 (4.6-6.20); Red Cell Distribution Width 15.3 % (11.5-14.5); White Blood Count 12.6 K/mm3 (4.5-10.0)
[2020-04-10 06:18] LABS: Anion Gap 8 mmol/L (8-16); Blood Urea Nitrogen 7 mg/dL (9-20); Calcium 8.7 mg/dL (8.4-10.2); Carbon Dioxide 27 mmol/L (22-30); Chloride 101 mmol/L (98-107); Estimated CRCL calculation 91 ml/min; Estimated Glomerular Filt Rate > 60; Glucose 128 mg/dL (75-110); Potassium 4.2 mmol/L (3.4-5.0); Sodium 136 mmol/L (137-145)
--- NOTE | 2020-04-10 07:03 | PC.NURSE ---
Dr Yeager bedside completing post op assessment. Flavia Tierney #[id number], utilized explaining procedure, possible labs and followup care.
--- NOTE | 2020-04-10 08:23 | PM.PNGS ---
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 Will advance diet and increase ambulation. Stop q.6 hours IV ibuprofen. If continues to do well can probably go home tomorrow. (2) MIGUELINA (iron deficiency anemia): Code(s): D50.9 - Iron deficiency anemia, unspecified Status: Chronic Assessment and Plan: H&H low but stable Subjective Subjective Date/Time Seen: 04/10/20 08:23 Post Op day: 1 Patient reports: no new complaints, feels better, tolerating liquids well, bowel movement and afebrile Exam Const: General: comfortable and no acute distress; No confusion Orientation/consciousness: patient oriented x3 and No confusion Resp: Effort & Inspection: normal respiratory effort Auscultation: clear to auscultation bilaterally Cardio: Rate: regular rate Rhythm: regular rhythm GI: Inspection: non-distended and incision ( Incisions healing well) GI Palp: Yes Soft to palpation, Yes Tenderness to palpation present (GI) ( minimal tenderness), No Guarding due to palpation present (GI) and No Rebound tenderness present Auscultation: Hypoactive bowel sounds present Neuro: General: patient oriented x3, no focal motor deficits and No confusion Extrem: General: no calf tenderness and no edema Psych: Affect: normal affect Insight: Good insight present (Psych) Judgement: Good judgement present (Psych) Objective Data Vital Signs Vital Signs: Vital Signs - 24 hr 04/09/20 13:13 04/09/20 18:02 04/09/20 18:17 Temperature 36.8 C 37.1 C Pulse Rate 94 63 64 Respiratory Rate 20 14 11 L Blood Pressure 126/53 L 105/60 116/69 Pulse Oximetry 100 100 100 04/09/20 18:31 04/09/20 18:45 04/09/20 19:25 Temperature 36.7 C Pulse Rate 64 62 73 Respiratory Rate 13 13 16 Blood Pressure 120/73 124/74 121/66 Pulse Oximetry 100 100 04/09/20 19:40 04/09/20 19:44 04/09/20 20:10 Temperature 36.3 C L 36.7 C 36.1 C L Pulse Rate 69 73 83 Respiratory Rate 14 14 14 Blood Pressure 122/57 L 121/66 130/63 Pulse Oximetry 100 100 100 04/09/20 21:15 04/10/20 00:40 04/10/20 05:24 Temperature 36.7 C 36.6 C 36.0 C L Pulse Rate 72 68 67 Respiratory Rate 12 12 12 Blood Pressure 129/64 136/68 117/68 Pulse Oximetry 100 100 100 Intake/Output Intake/Output: Intake & Output 04/07/20 04/08/20 04/09/20 04/10/20 23:59 23:59 23:59 23:59 Intake Total 800 3130 2740 600 Output Total 375 2600 1600 Balance 764 246 7885 -1000 Meds/Results Medications: Active Medications Generic Name Dose Route Start Last Admin Trade Name Freq PRN Reason Stop Dose Admin Acetaminophen 500 mg 04/09/20 18:55 Acetaminophen 500 Mg Tablet PO Q6H PRN Mild Pain (1-3) or Fever Hydrocodone Bitart/Acetaminophen 1 tab 04/09/20 18:55 Hydrocodone/Acetaminophen (*Crx) 5-325 Mg Tablet PO Q4H PRN Pain Rated 4-6 Hydrocodone Bitart/Acetaminophen 1 tab 04/09/20 18:55 Hydrocodone/Acetaminophen (*Crx) 10-325 Mg Tablet PO Q4H PRN Pain Rated 7-10 Alvimopan 12 mg 04/10/20 18:00 Alvimopan 12 Mg Capsule PO 04/17/20 18:01 Q12H YVAN Enoxaparin Sodium 40 mg 04/10/20 09:00 Enoxaparin 40 Mg/0.4 Ml Syringe SUB-Q DAILY YVAN Famotidine 20 mg 04/10/20 09:00 Famotidine 20 Mg Tablet PO Q12HR YVAN Morphine Sulfate 4 mg 04/09/20 18:55 Morphine Sulfate (*Crx) 4 Mg/Ml Inj IV PUSH Q2H PRN Pain Rated 7-10 Ondansetron HCl 4 mg 04/09/20 18:55 Ondansetron Inj 4 Mg/2 Ml Vial IV PUSH Q4H PRN Nausea And Vomiting Radiology Results: ITS Impressions Chest X-Ray 04/07/20 09:30 IMPRESSION: 1. Mild scarring at the lung apices. Abdomen/Pelvis CT 04/07/20 09:59 IMPRESSION: Focal transverse colonic circumferential narrowing appearance most consistent with adenocarcinoma, causing partial
--- NOTE | 2020-04-10 09:28 | WPDGIPROGNO ---
Progress Note: A&P Additional Plan Patient alert and comfortable this morning. Surgical findings noted. Physical exam reveals abdomen to be soft. Incisions appear to be healing well. Impression 1. 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 Suggest Oncology opinion be obtained for this patient. Follow-up colonoscopy in 1 year advised. 2. Iron deficiency anemia related to tumor. Plan is for iron replacement when oral diet tolerated. Subjective Date/time seen: 04/10/20 09:28 Objective Data Vital Signs Vital Signs: Vital Signs - 24 hr 04/09/20 13:13 04/09/20 18:02 04/09/20 18:17 Temperature 98.3 F 98.8 F Pulse Rate 94 63 64 Respiratory Rate 20 14 11 L Blood Pressure 126/53 L 105/60 116/69 Pulse Oximetry 100 100 100 04/09/20 18:31 04/09/20 18:45 04/09/20 19:25 Temperature 98.1 F Pulse Rate 64 62 73 Respiratory Rate 13 13 16 Blood Pressure 120/73 124/74 121/66 Pulse Oximetry 100 100 04/09/20 19:40 04/09/20 19:44 04/09/20 20:10 Temperature 97.4 F L 98.1 F 97 F L Pulse Rate 69 73 83 Respiratory Rate 14 14 14 Blood Pressure 122/57 L 121/66 130/63 Pulse Oximetry 100 100 100 04/09/20 21:15 04/10/20 00:40 04/10/20 05:24 Temperature 98.1 F 98 F 96.8 F L Pulse Rate 72 68 67 Respiratory Rate 12 12 12 Blood Pressure 129/64 136/68 117/68 Pulse Oximetry 100 100 100 Intake/Output Intake/Output: Intake & Output 04/07/20 04/08/20 04/09/20 04/10/20 23:59 23:59 23:59 23:59 Intake Total 800 3130 2740 990 Output Total 375 2600 2000 Balance 820 547 8463 -1010 Meds/Results Medications: Active Medications Generic Name Dose Route Start Last Admin Trade Name Freq PRN Reason Stop Dose Admin Acetaminophen 500 mg 04/09/20 18:55 Acetaminophen 500 Mg Tablet PO Q6H PRN Mild Pain (1-3) or Fever Hydrocodone Bitart/Acetaminophen 1 tab 04/09/20 18:55 Hydrocodone/Acetaminophen (*Crx) 5-325 Mg Tablet PO Q4H PRN Pain Rated 4-6 Hydrocodone Bitart/Acetaminophen 1 tab 04/09/20 18:55 Hydrocodone/Acetaminophen (*Crx) 10-325 Mg Tablet PO Q4H PRN Pain Rated 7-10 Alvimopan 12 mg 04/10/20 18:00 Alvimopan 12 Mg Capsule PO 04/17/20 18:01 Q12H YVAN Enoxaparin Sodium 40 mg 04/10/20 09:00 Enoxaparin 40 Mg/0.4 Ml Syringe SUB-Q DAILY YVAN Famotidine 20 mg 04/10/20 09:00 Famotidine 20 Mg Tablet PO Q12HR YVAN Ibuprofen 800 mg in 200 mls @ 400 mls/hr 04/10/20 08:33 Caldolor 800 Mg/200 Ml IVPB Q6H PRN Pain Rated 4-6 Morphine Sulfate 4 mg 04/09/20 18:55 Morphine Sulfate (*Crx) 4 Mg/Ml Inj IV PUSH Q2H PRN Pain Rated 7-10 Morphine Sulfate 2 mg 04/10/20 08:33 Morphine Sulfate (*Crx) 2 Mg/Ml Inj IV PUSH Q2H PRN Pain Rated 7-10 Ondansetron HCl 4 mg 04/09/20 18:55 Ondansetron Inj 4 Mg/2 Ml Vial IV PUSH Q4H PRN Nausea And Vomiting Radiology Results: ITS Impressions Chest X-Ray 04/07/20 09:30 IMPRESSION: 1. Mild scarring at the lung apices. Abdomen/Pelvis CT 04/07/20 09:59 IMPRESSION: Focal transverse colonic circumferential narrowing appearance most consistent with adenocarcinoma, causing partial colonic obstruction. Small mesenteric lymph nodes deep to this, possibly metastatic. Consider colonoscopy for histologic correlation. Labs Labs: Laboratory Results - last 24 hr 04/10/20 04/10/20 05:17 05:17 WBC 12.6 H RBC 4.59 L Hgb 9.0 L Hct 31.2 L MCV 68.0 L MCH 19.6 L MCHC 28.8 L RDW 15.3 H Plt Count 174 MPV TNP % Immature Plt Fraction 14.8 H Sodium 136 L Potassium 4.2 Chloride 101 Carbon Dioxide 27 Anion Gap 8 BUN 7 L Creatinine 0.80 Estim Creat Clear Calc 91 Estimated GFR > 60 Glucose 128 H Calcium 8.7
[2020-04-10 10:00] VITALS: BP 113/63; PULSE 74; RESP 16; TEMP 36.7; O2SAT 100
[2020-04-10] MEDS: ENOXAPARIN 40 MG/0.4 ML SYRINGE SUB-Q (10:29)
[2020-04-10] MEDS: FAMOTIDINE 20 MG TABLET PO ×2 (10:33→21:48)
--- NOTE | 2020-04-10 11:13 | PCNFU ---
Nutrition Follow-Up Complete: Inadequate oral intake related to n/v, obstrution, and diet order as evidence by day four NPO and obstructing malignancy in colon. Goal: Diet advancement with PO intake of 75% of meals to maintain weight and meet increased nutrition needs Patient is progressing towards goal. We will continue current goal. Pt current nutrition is Low Fiber. Nutrition recommendation: Agree Last recorded weight is 55.6 kg. No new weight reported. Bowel Motility:+BM reported 04/10. Labs Reviewed:Glu 128,Na 136. Meds Noted:Pepsid, Lovenox. Additional Notes: Nutrition follow up today. 04/09-Transverse colon mass post resection. Diet order has advanced to a low fiber diet. Patient tolerating clear liquids for breakfast eating 75% of tray. Diet orders remain appropriate. Monitoring: PO intake, wt, labs every 5 days
--- NOTE | 2020-04-10 13:30 | WPDONCCN ---
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 Early stage colon cancer based on CT scan - 2. I will wait for the final pathology report from the partial colectomy surgery to determine if he will require adjuvant chemotherapy. 3. I feel that additional mutational testing on the pathology specimen his warranted to determine if he has a more favorable prognosis or even a hereditary type of cancer. 4. He can be discharged from our point of view and he will follow-up with Dr. Garcia in 2 weeks. 5. He will need germ line and somatic mutational analysis determine if he has the Saenz syndrome since he is 34 years of age and has colon cancer. 6. Patient underwent this consultation and discussion through chair car driver -Dr. Garcia over my iPhone and patient voiced understanding in Palauan and agreed with the recommendations. (2) MIGUELINA (iron deficiency anemia): Code(s): D50.9 - Iron deficiency anemia, unspecified Status: Chronic Assessment and Plan: 1. This is due to his underlying colon cancer. 2. I would discharge him home with ferrous sulfate 1 tablet daily 3. We will recheck his CBC in 2 weeks in our office. HPI Data of Consult Date/Time: 04/10/20 13:30 Requesting Physician: José Miguel Haider MD Primary Care Provider: ADMINISTRATIVE SERVICES COORDINATOR PHYSICIAN Consult Narrative Narrative: Nicholas Garrison , 34-year-old male without much medical history, presents to the emergency department on April 07 with progressive unrelenting abdominal pain that has been waxing and waning for the past 3 months. He denies any associated GI symptoms such as nausea or vomiting or diarrhea. He denies any melena or hematochezia. He states that his bowel habits have not been altered. He has lost a little bit of weight during this time frame. CT scan performed on April 07 in the ER showed a partial large bowel obstruction with colonic neoplasm involving the transverse colon. Patient was admitted and underwent evaluation. Dr. Cisse was consulted for GI. He performed a colonoscopy the next day showing malignant nearly obstructing neoplasm of the proximal portion of the transverse colon. Biopsy of this mass revealed adenocarcinoma consistent with colon primary. Dr. Yeager was then consulted for surgical oncology evaluation. He and Dr. Pearce performed a partial colectomy on April 09. Patient recovered very quickly and without any complications. At my consultation today, patient does not speak any word of Lithuanian and only speaks Palauan. Therefore, I contacted my partner, Dr. Garcia and informed him of the situation and he spoke to the patient directly through my iPhone. All information was gathered from him. Patient has been healthy all his life. He has no family history of colon cancer. He is 1 of 13 siblings. Review of Systems Review of Systems: All systems reviewed & are unremarkable except as noted in HPI and below Constitutional: Constitutional: Denies anorexia, Denies fatigue, Denies fever(s), Denies malaise, Denies night sweats, Reports snoring, Denies weakness and Denies weight loss Eyes: Eyes: Denies blurry vision ENT: Denies dysphagia, Denies epistaxis, Denies mouth lesions, Denies mouth pain, Denies odynophagia, Denies disequilibrium and Denies sore throat Cardiovascular: Cardiovascular: Denies chest pain, Denies leg edema and Denies dyspnea Respiratory: Respiratory: Denies cough, Denies dyspnea and Reports snoring Gastrointestinal: Gastrointestinal: Reports abdominal pain, Denies constipation, Denies dysphagia, Denies diarrhea, Denies nausea, Denies odynophagia and Denies vomiting Genitourinary: Genitourinary: Denies hematuria and Denies dysuria Musculoskeletal: Musculoskeletal: Denies myalgias, Denies arthralgias and Denies muscle w
[2020-04-10 14:00] VITALS: BP 117/61; PULSE 78; RESP 16; TEMP 36.5; O2SAT 100
--- NOTE | 2020-04-10 14:29 | PM.IMPN ---
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 (3) MIGUELINA (iron deficiency anemia): Code(s): D50.9 - Iron deficiency anemia, unspecified Status: Chronic Assessment and Plan: Iron supplementation (4) Abdominal pain: Qualifiers: Abdominal location: lower abdomen, unspecified Qualified Code(s): R10.30 - Lower abdominal pain, unspecified Code(s): R10.9 - Unspecified abdominal pain Status: Acute Assessment and Plan: Resolved. Subjective Date/time seen: 04/10/20 14:29 I feel fine. Review of Systems Review of Systems: Narrative: No discomfort, no new issues s/p abdominal surgery day 1. Exam Narrative: Exam Narrative: Lying in bed . Const: General: cooperative, healthy appearing, alert, awake and Physically active Nutritional Appearance: well nourished and thin Orientation/consciousness: patient oriented x3 Limitations: no limitations Other: Other than Turkmen speaker. HENMT: Head: normal to inspection and normocephalic Ears: hearing grossly normal bilaterally General nose exam: Normal external nose present Face and sinus: normal facial exam Mouth: Yes Normal oral and palatal mucosa present Eyes: General: appearance normal, both eyes and all related structures Cornea: corneas normal Pupils: Equal, round and reactive pupils present EOM: EOMs intact bilaterally Neck: Neck: full ROM, no lymphadenopathy and no JVD Resp: Effort & Inspection: normal respiratory effort Auscultation: clear to auscultation bilaterally Cardio: Jugular venous distension: no JVD Rate: regular rate Rhythm: regular rhythm GI: Inspection: normal to inspection GI Palp: Yes Soft to palpation and Yes No hepatosplenomegaly present Auscultation: normal bowel sounds Skin: General skin exam: normal color Wounds: wounds noted (Epigastric area surgical wound.) Neuro: General: patient oriented x3 and CN's II-XI intact bilaterally Cranial nerves: Yes CN's II-XII intact bilaterally and Yes Equal, round and reactive pupils present Cognition (Neuro): normal cognition Speech: normal speech Gait exam (Neuro): Normal gait present Motor exam (neuro): 5/5 motor strength present throughout Sensory Exam: normal sensation Extrem: General: normal to inspection, full ROM and no pedal edema Objective Data Vital Signs Vital Signs: Vital Signs - 24 hr 04/09/20 18:02 04/09/20 18:17 04/09/20 18:31 Temperature 98.8 F Pulse Rate 63 64 64 Respiratory Rate 14 11 L 13 Blood Pressure 105/60 116/69 120/73 Pulse Oximetry 100 100 100 04/09/20 18:45 04/09/20 19:25 04/09/20 19:40 Temperature 98.1 F 97.4 F L Pulse Rate 62 73 69 Respiratory Rate 13 16 14 Blood Pressure 124/74 121/66 122/57 L Pulse Oximetry 100 100 04/09/20 19:44 04/09/20 20:10 04/09/20 21:15 Temperature 98.1 F 97 F L 98.1 F Pulse Rate 73 83 72 Respiratory Rate 14 14 12 Blood Pressure 121/66 130/63 129/64 Pulse Oximetry 100 100 100 04/10/20 00:40 04/10/20 05:24 04/10/20 10:00 Temperature 98 F 96.8 F L 98.1 F Pulse Rate 68 67 74 Respiratory Rate 12 12 16 Blood Pressure 136/68 117/68 113/63 Pulse Oximetry 100 100 100 04/10/20 14:00 Temperature 97.7 F Pulse Rate 78 Respiratory Rate 16 Blood Pressure 117/61 Pulse Oximetry 100 Intake/Output Intake/Output: Intake & Output 04/07/20 04/08/20 04/09/20 04/10/20 23:59 23:59 23:59 23:59 Intake Total 800 3130 2740 1350 Output Total 375 2600 2000 Balance 394 221 8769 -173 Meds/Results Medications: Active Medications Generic Name Dose Rout
--- NOTE | 2020-04-10 17:14 | WPDANESPN ---
Anes - Prog Note Post-Op Date/Time: 04/10/20 17:14 Cardiovascular status: normal Respiratory status: normal Airway patency: baseline Mental status: baseline Post-Op hydration status: normal Vital Signs: Last Vital Signs Temp 36.5 C 04/10/20 14:00 Pulse 78 04/10/20 14:00 Resp 16 04/10/20 14:00 BP 117/61 04/10/20 14:00 Pulse Ox 100 04/10/20 14:00 Pain Score (VAS): 0 I/O: Intake & Output 04/10/20 04/10/20 04/10/20 07:59 15:59 23:59 Intake Total 600 750 Output Total 1600 400 300 Balance -1000 350 -300 Laboratory Tests 04/10/20 05:17 04/10/20 05:17 04/10/20 04/10/20 05:17 05:17 WBC 12.6 H RBC 4.59 L Hgb 9.0 L Hct 31.2 L MCV 68.0 L MCH 19.6 L MCHC 28.8 L RDW 15.3 H Plt Count 174 MPV TNP % Immature Plt Fraction 14.8 H Sodium 136 L Potassium 4.2 Chloride 101 Carbon Dioxide 27 Anion Gap 8 BUN 7 L Creatinine 0.80 Estim Creat Clear Calc 91 Estimated GFR > 60 Glucose 128 H Calcium 8.7 Post-procedural complaints: none Patient Feedback: Patient satisfied with anesthetic care.
[2020-04-10] MEDS: ALVIMOPAN 12 MG CAPSULE PO (17:43)
[2020-04-10] MEDS: HYDROcodone/acetaminophen (*CRX) 5-325 MG TABLET 1 TAB PO (17:46)
[2020-04-10 22:00] VITALS: BP 119/65; PULSE 79; RESP 14; TEMP 36.3; O2SAT 100
[2020-04-11 06:00] VITALS: BP 140/73; PULSE 74; RESP 16; TEMP 36.2; O2SAT 100
[2020-04-11] MEDS: ALVIMOPAN 12 MG CAPSULE PO (06:15)
[2020-04-11] MEDS: HYDROcodone/acetaminophen (*CRX) 5-325 MG TABLET 1 TAB PO (06:19)
[2020-04-11 06:39] LABS: Hematocrit 30.6 % (42.0-52.0); Hemoglobin 8.6 g/dL (14.0-18.0); Immature Platelet Fraction Pct 14.5 % (0.9-11.2); Mean Corpuscular HGB Conc 28.1 g/dl (32-36); Mean Corpuscular Hemoglobin 19.7 pg (26-34); Platelet Count Result 179 k/mm3 (150-375); Red Blood Count 4.37 M/mm3 (4.6-6.20); Red Cell Distribution Width 15.5 % (11.5-14.5); White Blood Count 8.8 K/mm3 (4.5-10.0)
[2020-04-11 06:51] LABS: Anion Gap 4 mmol/L (8-16); Blood Urea Nitrogen 11 mg/dL (9-20); Calcium 8.5 mg/dL (8.4-10.2); Carbon Dioxide 33 mmol/L (22-30); Chloride 101 mmol/L (98-107); Estimated CRCL calculation 91 ml/min; Estimated Glomerular Filt Rate > 60; Glucose 121 mg/dL (75-110); Sodium 138 mmol/L (137-145)
--- NOTE | 2020-04-11 08:22 | WPDGIPROGNO ---
Progress Note: A&P Additional Plan Patient appears to be doing well after colon resection. Final path specimen pending. Abdomen soft with incisional tenderness. Impression 1. Adenocarcinoma the colon. With near obstruction of the colon now status post resection. Final histology pending. Appreciate Oncology input. Outpatient follow-up advised. Follow-up colonoscopy 1 year after resection is encouraged. Subjective Date/time seen: 04/11/20 08:22 Objective Data Vital Signs Vital Signs: Vital Signs - 24 hr 04/10/20 10:00 04/10/20 14:00 04/10/20 22:00 Temperature 98.1 F 97.7 F 97.4 F L Pulse Rate 74 78 79 Respiratory Rate 16 16 14 Blood Pressure 113/63 117/61 119/65 Pulse Oximetry 100 100 100 04/11/20 06:00 Temperature 97.2 F L Pulse Rate 74 Respiratory Rate 16 Blood Pressure 140/73 Pulse Oximetry 100 Intake/Output Intake/Output: Intake & Output 04/08/20 04/09/20 04/10/20 04/11/20 23:59 23:59 23:59 23:59 Intake Total 3130 2740 1550 Output Total 2600 2300 Balance 530 2740 -750 Meds/Results Medications: Active Medications Generic Name Dose Route Start Last Admin Trade Name Freq PRN Reason Stop Dose Admin Acetaminophen 500 mg 04/09/20 18:55 Acetaminophen 500 Mg Tablet PO Q6H PRN Mild Pain (1-3) or Fever Hydrocodone Bitart/Acetaminophen 1 tab 04/09/20 18:55 04/11/20 06:19 Hydrocodone/Acetaminophen (*Crx) 5-325 Mg Tablet PO 1 tab Q4H PRN Administration Pain Rated 4-6 Hydrocodone Bitart/Acetaminophen 1 tab 04/09/20 18:55 Hydrocodone/Acetaminophen (*Crx) 10-325 Mg Tablet PO Q4H PRN Pain Rated 7-10 Alvimopan 12 mg 04/10/20 18:00 04/11/20 06:15 Alvimopan 12 Mg Capsule PO 04/17/20 18:01 12 mg Q12H YVAN Administration Enoxaparin Sodium 40 mg 04/10/20 09:00 04/10/20 10:29 Enoxaparin 40 Mg/0.4 Ml Syringe SUB-Q 40 mg DAILY YVAN Administration Famotidine 20 mg 04/10/20 09:00 04/10/20 21:48 Famotidine 20 Mg Tablet PO 20 mg Q12HR YVAN Administration Ibuprofen 800 mg in 200 mls @ 400 mls/hr 04/10/20 08:33 Caldolor 800 Mg/200 Ml IVPB Q6H PRN Pain Rated 4-6 Morphine Sulfate 2 mg 04/10/20 08:33 Morphine Sulfate (*Crx) 2 Mg/Ml Inj IV PUSH Q2H PRN Pain Rated 7-10 Ondansetron HCl 4 mg 04/09/20 18:55 Ondansetron Inj 4 Mg/2 Ml Vial IV PUSH Q4H PRN Nausea And Vomiting Radiology Results: ITS Impressions Chest X-Ray 04/07/20 09:30 IMPRESSION: 1. Mild scarring at the lung apices. Abdomen/Pelvis CT 04/07/20 09:59 IMPRESSION: Focal transverse colonic circumferential narrowing appearance most consistent with adenocarcinoma, causing partial colonic obstruction. Small mesenteric lymph nodes deep to this, possibly metastatic. Consider colonoscopy for histologic correlation. Labs Labs: Laboratory Results - last 24 hr 04/11/20 04/11/20 05:55 05:55 WBC 8.8 RBC 4.37 L Hgb 8.6 L Hct 30.6 L MCV 70.0 L MCH 19.7 L MCHC 28.1 L RDW 15.5 H Plt Count 179 MPV TNP % Immature Plt Fraction 14.5 H Sodium 138 Potassium 4.0 Chloride 101 Carbon Dioxide 33 H Anion Gap 4 L BUN 11 Creatinine 0.80 Estim Creat Clear Calc 91 Estimated GFR > 60 Glucose 121 H Calcium 8.5
[2020-04-11] MEDS: ENOXAPARIN 40 MG/0.4 ML SYRINGE SUB-Q (09:59)
[2020-04-11] MEDS: FAMOTIDINE 20 MG TABLET PO (09:59)
--- NOTE | 2020-04-11 10:01 | PM.PNGS ---
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 Continueadvance diet and increase ambulation. Stop q.6 hours okay from the surgery perspective to go home today. Follow-up in the office with Dr. Yeager in 2 weeks. Instructions placed in the discharge order section along with a script for pain pills. (2) MIGUELINA (iron deficiency anemia): Code(s): D50.9 - Iron deficiency anemia, unspecified Status: Chronic Assessment and Plan: H&H low but stable Subjective Subjective Date/Time Seen: 04/11/20 10:01 Post Op day: 2 (Improving nicely postop day 2) Patient reports: tolerating liquids well (Also including some soft food) and bowel movement Interval history: Patient continues to improve nicely postop day 2 from his extended right hemicolectomy for a transverse colon tumor. Nurses report patient taking about 1 put pain pill per day and patient denies much incisional pain. Review of Systems Review of Systems: All systems reviewed & are unremarkable except as noted in HPI and below ( Those noted in HPI) Constitutional: Constitutional: Denies chills, Reports fatigue, Denies fever(s), Reports lethargy and Denies night sweats Gastrointestinal: Gastrointestinal: Reports as per HPI, Reports abdominal pain (Minimal, apparently per nurse's patient taking 1 Gregory per da.) and Denies nausea Psychiatric: Psychiatric: Denies confusion Endocrine: Endocrine: Reports fatigue Exam Const: General: comfortable, no acute distress, alert and awake; No confusion Orientation/consciousness: patient oriented x3 and No confusion Resp: Auscultation: clear to auscultation bilaterally GI: Inspection: normal to inspection, non-distended, incision ( Incisions healing well), no scars and no visible herniation Auscultation: Hypoactive bowel sounds present : General: Yes no CVA tenderness Skin: General skin exam: no induration and other (no palpable nodules) Lesions: no lesions Rashes: no rashes Nails: no clubbing and no pitting Objective Data Vital Signs Vital Signs: Vital Signs - 24 hr 04/10/20 14:00 04/10/20 22:00 04/11/20 06:00 Temperature 36.5 C 36.3 C L 36.2 C L Pulse Rate 78 79 74 Respiratory Rate 16 14 16 Blood Pressure 117/61 119/65 140/73 Pulse Oximetry 100 100 100 Intake/Output Intake/Output: Intake & Output 04/08/20 04/09/20 04/10/20 04/11/20 23:59 23:59 23:59 23:59 Intake Total 3130 2740 1550 240 Output Total 2600 2300 Balance 530 2740 -750 240 Meds/Results Medications: Active Medications Generic Name Dose Route Start Last Admin Trade Name Freq PRN Reason Stop Dose Admin Acetaminophen 500 mg 04/09/20 18:55 Acetaminophen 500 Mg Tablet PO Q6H PRN Mild Pain (1-3) or Fever Hydrocodone Bitart/Acetaminophen 1 tab 04/09/20 18:55 04/11/20 06:19 Hydrocodone/Acetaminophen (*Crx) 5-325 Mg Tablet PO 1 tab Q4H PRN Administration Pain Rated 4-6 Hydrocodone Bitart/Acetaminophen 1 tab 04/09/20 18:55 Hydrocodone/Acetaminophen (*Crx) 10-325 Mg Tablet PO Q4H PRN Pain Rated 7-10 Alvimopan 12 mg 04/10/20 18:00 04/11/20 06:15 Alvimopan 12 Mg Capsule PO 04/17/20 18:01 12 mg Q12H YVAN Administration Enoxaparin Sodium 40 mg 04/10/20 09:00 04/11/20 09:59 Enoxaparin 40 Mg/0.4 Ml Syringe SUB-Q 40 mg DAILY YVAN Administration Famotidine 20 mg 04/10/20 09:00 04/11/20 09:59 Famotidine 20 Mg Tablet PO 20 mg Q12HR YVAN Administration Ibuprofen 800 mg in 200 mls @ 400 mls/hr 04/10/20 08:33 Caldolor 800 Mg/200 Ml IVPB Q6H PRN Pain Rated 4-6 Morphine Sulfate 2 mg 04/10/20 08:33 Morphine Sulfate (*Crx) 2 Mg/Ml Inj IV PUSH Q2H PRN Pain Rated 7-10 Ondansetron HCl 4 mg 04/09/20 18:55 Ondansetron Inj 4 Mg/2 Ml Vial IV PUSH Q4H PRN N
--- NOTE | 2020-04-11 10:05 | PM.DS ---
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 Will follow up for Pathology report and treatment in the outpatient setting with Hem/Onc (2) Colon obstruction: Code(s): K56.609 - Unspecified intestinal obstruction, unspecified as to partial versus complete obstruction Status: Acute Assessment and Plan: Resolved. S/p surgery. (3) MIGUELINA (iron deficiency anemia): Code(s): D50.9 - Iron deficiency anemia, unspecified Status: Chronic Assessment and Plan: Likely secondary to Colon CA Started on Ferrous Sulfate. (4) Abnormal CT scan, colon: Code(s): R93.3 - Abnormal findings on diagnostic imaging of other parts of digestive tract Status: Acute Assessment and Plan: S/p surgery. (5) Abdominal pain: Qualifiers: Abdominal location: lower abdomen, unspecified Qualified Code(s): R10.30 - Lower abdominal pain, unspecified Code(s): R10.9 - Unspecified abdominal pain Status: Acute Assessment and Plan: Resolved. DS: Summary Hospital Course Reason for hospitalization: Abdominal pain. Hospital Course: Patient was admitted to [facility] GI was consulted and patient underwent Colonoscopy where he was found to have a mass and stricture. Surgery was consulted and patient was taken to OR for Laparoscopic resection. Patient did well on the post op period and was discharged home. He was given follow up appointments with Hem/onc Status at Discharge Cognitive/behavioral status at discharge: Good Functional status at discharge: independent ambulation Overall status at discharge: patient is back to baseline Time Spent with Patient Time attestation: Total time spent providing and/or coordinating discharge services: Time spent: Greater than 30 minutes DS: Data Data Completed and Pending Completed studies during hospitalization: Pending at discharge 04/08/20 11:03 Surgical [PTH] Routine Pending studies at discharge: Pending at discharge 04/09/20 17:03 Surgical [PTH] Routine Labs on day of discharge: Labs from last 24 hours 04/11/20 04/11/20 05:55 05:55 WBC 8.8 RBC 4.37 L Hgb 8.6 L Hct 30.6 L MCV 70.0 L MCH 19.7 L MCHC 28.1 L RDW 15.5 H Plt Count 179 MPV TNP % Immature Plt Fraction 14.5 H Sodium 138 Potassium 4.0 Chloride 101 Carbon Dioxide 33 H Anion Gap 4 L BUN 11 Creatinine 0.80 Estim Creat Clear Calc 91 Estimated GFR > 60 Glucose 121 H Calcium 8.5 Discharge Plan Discharge Attending physician on discharge: José Miguel Haider V. Consulting providers: Joe Guajardo Jr. ; Tera Bernstein ; Janes Cisse ; Mehdi Yeager ; Jaison Garcia Discharging Clinician: José Miguel Haider V. Patient Disposition: Home, Self-Care Activity: may shower, no straining and as tolerated Diet: as tolerated and regular Wound Care Instructions: incision open to air Discharge Instructions: Ambulate 3-4 x per day and as tolerated. No lifting over 15-20lbs. May bathe or shower. Stairs are OK. May drive a car in 2 days. Patient Instructions: Antibiotic Form, Low Fiber Diet (DC), Pain Management (DC), Colonoscopy (DC), Upper Endoscopy (DC), Colectomy (DC) Stand Alone Forms: General Discharge Information Follow-up/Referrals: Mehdi Yeager MD [Physician] - 2 Weeks (Call my office for appointment) Huber Hansen MD [Physician] - Call for Appointment (catie jj [phone] para programar percy daxa de seguimiento; si tiene alguna dificultad en rocio casandra, catie jj [phone].) Discharge Medications: New hydrocodone-acetaminophen 5-325 mg tablet 1 - 2 tablet PO Q6H
== END 2020-04-11 11:45 | disposition home or self-care (01) | DRG 231 ==
LOC: ANHED 09:36 → ANH3MED 10:58
PROVIDERS: Internal Medicine Gastroenterology; Physician Assistant; Surgery; Admitting Provider Internal Medicine; Emergency Provider Emergency Medicine; Visit Provider Internal Medicine
PROC: 0DJD8ZZ Inspection of Lower Intestinal Tract, Via Natural or Artificial Opening Endoscopic (ICD-10-PCS; CPT 45378; principal; 2020-04-08 11:30)
PROC: 0DTF4ZZ Resection of Right Large Intestine, Percutaneous Endoscopic Approach (ICD-10-PCS; CPT 44204; principal; 2020-04-09 14:00)
DX: C18.4 Malignant neoplasm of transverse colon (principal); D63.0 Anemia in neoplastic disease; D50.8 Other iron deficiency anemias; K64.8 Other hemorrhoids; G89.18 Other acute postprocedural pain; Z23 Encounter for immunization
CPT/HCPCS: 36415; 71045; 74177; 80048; 80053; 81001; 81210; 81275; 81276; 81301; 81311; 82274; 82378; 82728; 83540; 83550; 83690; 84484; 85025; 85027; 85055; 86850; 86900; 86901; 88305; 88309; 88381; 90471; 90653; 93005; 96361; 96374; 99285; A9270; G0008; G0378; G0379; J0330; J0690; J1100; J1170; J1644; J1650; J1741; J1885; J2250; J2405; J2704; J3010; J3480; J7030; J7120; Q9967

== ENCOUNTER 2021-06-30 08:07 | Outpatient (CLI) | payer SELFPAY ==
--- NOTE | ~2021-06-30 | CT_ITS ---
EXAMINATION: CT abdomen pelvis w con EXAM DATE: 06/30/2021 08:44 INDICATION: Malignant neoplasm of transverse colon . TECHNIQUE: Spiral CT of the abdomen and pelvis was performed following intravenous injection of 100 m L Omnipaque 350. Axial, coronal and sagittal images of the abdomen and pelvis were reviewed. The do se-length product (DLP) for this examination was 267.13 mGy-cm. The exposure was tailored according to patient size (auto mA exposure control), and iterative reconstruction (ASIR) was used as additiona l dose reduction technique. 04/07/2020 FINDINGS: Interval right hemicolectomy. Unremarkable anastomosis site, no adjacent pathologically enl arged lymph nodes. The liver, spleen, adrenal glands and pancreas are unremarkable. Gallbladder is unremarkable. No biliary obstruction. Portal and splenic veins are patent. Kidneys enhance symmetr ically. There is no hydronephrosis. The prostate is unremarkable. The bladder is unremarkable. T here is no retroperitoneal or pelvic lymphadenopathy. There are no findings to suggest appendicitis. The stomach and small bowel are unremarkable. There is expected amount of colonic stool. No free intraperitoneal gas. The heart is normal in size. T here are no pericardial or pleural effusions. The lung bases are unremarkable. There are no osteobl astic or osteolytic lesions identified. IMPRESSION: 1. No evidence of local recurrence or metastatic disease. Reviewed, dictated and finalized at location B. RESEARCH ENGINEER
== END 2021-06-30 08:08 ==
PROVIDERS: Visit Provider Internal Medicine Medical Oncology
DX: C18.4 Malignant neoplasm of transverse colon (principal)
CPT/HCPCS: 74177; Q9967

== ENCOUNTER 2023-07-11 10:24 | Emergency (ER) | payer SELFPAY ==
[2023-07-11] VITALS (12 sets, daily range): BP systolic 114–141; BP diastolic 81–94; PULSE 79–96; RESP 17–23; TEMP 36.5–36.8; O2SAT 99–100
--- NOTE | ~2023-07-11 | CT_ITS ---
EXAMINATION: CT cervical spine wo con DATE: 07/11/2023 11:55 INDICATION: Neck pain TECHNIQUE: Computed tomography (CT) of the cervical spine was performed without intravenous contrast. The dose-length product (DLP) was 271.77 mGy-cm. Automated exposure control and iterative reconstruc tion technique were employed. COMPARISON: None FINDINGS: Bone alignment is normal. There is no fracture. The vertebral body heights, alignment, and intervertebral disc spaces are normal. The odontoid process is intact. Prevertebral soft tissues are normal. IMPRESSION: 1. No acute osseous abnormality. Reviewed, dictated and finalized at location L. E OPERATOR HELPER
--- NOTE | ~2023-07-11 | CT_ITS ---
EXAMINATION: CT brain wo con INDICATION: Headache COMPARISON: None TECHNIQUE: Standard unenhanced head CT. The dose-length product (DLP) was 605.33 mGy-cm. The mA was a djusted according to patient size. Iterative reconstruction technique was employed. FINDINGS: No intracranial hemorrhage, acute infarction, or abnormal mass lesion. The ventricles are n ormal. No abnormal mass effect or midline shift. The mayer-white matter differentiation is normal. The basal cisterns are patent. The orbits are normal. The paranasal sinuses, mastoids and calvarium are normal. IMPRESSION: 1. No acute intracranial abnormality. Reviewed, dictated and finalized at location L. NESS FUNCTIONAL ANALYST
--- NOTE | ~2023-07-11 | CT_ITS ---
EXAMINATION: CT chst ab pel jim lum w DATE: 07/11/2023 11:58 INDICATION: Right-sided pain after fall from horse TECHNIQUE: Transaxial computed tomographic images of the chest, abdomen, pelvis, thoracic, and lumbar spine were obtained after the administration of 100 cc of Omnipaque 350 intravenous contrast. The do se-length product (DLP) was 394.88 mGy-cm. Automated exposure control and iterative reconstruction te chnique were employed. COMPARISON: 06/30/2021 FINDINGS: CHEST CT: There is mild dependent atelectasis. The lungs are free of focal airspace opacities. No pleural effus ion or pneumothorax. No pathologically enlarged thoracic lymph nodes are identified. The heart size i s normal. There is internal stabilization hardware in the left clavicle. There is an age-indeterminat e fracture at the distal left clavicle just beyond the stabilization hardware. ABDOMEN/PELVIS CT: Hypoattenuating areas in the liver measuring up to 4 mm likely represent cysts. The spleen, pancreas, gallbladder, and adrenal glands are normal. The kidneys are unremarkable. There are surgical changes of right hemicolectomy. No pathologically enlarged abdominal or pelvic lymph nodes are identified. N o free intraperitoneal gas or evidence of bowel obstruction. THORACIC SPINE CT: No fracture, dislocation, or subluxation. The vertebral body heights, alignment, and intervertebral d isc spaces are normal. The paravertebral soft tissues are unremarkable. LUMBAR SPINE CT: No fracture, dislocation, or subluxation. The vertebral body heights, alignment, and intervertebral d isc spaces are normal. The paravertebral soft tissues are unremarkable. IMPRESSION: 1. No acute findings of the chest, abdomen, or pelvis. 2. Age indeterminate fracture of the distal left clavicle just beyond the stabilization hardware, pos sibly old fracture with nonunion. Reviewed, dictated and finalized at location L. H HAND IMPRESSION: 1. No acute findings of the chest, abdomen, or pelvis. 2. Age indeterminate fracture of the distal left clavicle just beyond the stabi lization hardware, possibly old fracture with nonunion.
--- NOTE | 2023-07-11 11:07 | ECG_ITS ---
Measurements Intervals [place] Rate: 83 P: 52 [place]: 136 QRS: 50 QRSD: 86 T: 42 QT: 338 QTc: 399 Interpretive Statements SINUS RHYTHM POSSIBLE LEFT ATRIAL ENLARGEMENT [-0.1mV P-WAVE IN V1/V2] EARLY REPOLARIZATION [ST ELEVATION WITH NORMALLY INFLECTED T-WAVE] NO PREVIOUS ECG AVAILABLE FOR COMPARISON Electronically Signed On 07-11-2023 15:46:22 HYDRAULIC ELEVATOR CONSTRUCTOR by Dinorah Ortiz M.D.
--- NOTE | 2023-07-11 11:11 | ED.HEATRA ---
HPI - Head Injury General Chief complaint: Head Injury Stated complaint: fell off horse today hit head Time Seen by Provider: 07/11/23 10:35 Source: patient Mode of arrival: ambulatory Limitations: language barrier (patient's family member is interpreting which he prefers) History of Present Illness HPI Narrative: This is a 37-year-old male that presents to the emergency department after a fall off of a horse today. Reports the horse fell. This caused him to fall forward off of the horse. He is unsure if he hit his head. He did not lose consciousness. Since he has had right sided chest, shoulder, and back pain. Denies vision changes, vomiting, numbness, weakness. Related Data Home Medications Medication Instructions Recorded Confirmed No Home Medications 04/27/20 05/13/20 Allergies Allergy/AdvReac Type Severity Reaction Status Date / Time No Known Allergies Allergy Verified 06/29/20 17:22 Review of Systems Review of Systems: CONSTITUTIONAL: Denies fever EYES: Denies visual changes CARDIOVASCULAR: Reports chest pain RESPIRATORY: Denies dyspnea. GASTROINTESTINAL: Denies abdominal pain, nausea, vomiting MUSCULOSKELETAL: Reports back pain, joint pain, and myalgia. NEUROLOGIC: Denies numbness, or weakness. All systems reviewed & are unremarkable except as noted in HPI and below PMFSH Past Medical History Medical History Colon obstruction MIGUELINA (iron deficiency anemia) Surgical History Surgical History History of colon resection Social History Social History (System 06/29/20 @ 17:22 by Karey Parikh) Smoking status: Never smoker Alcohol intake: never Substance use: never Gender identity (if verbalized by the patient): Male Sexual Orientation (if Verbalized by the Patient): Straight or Heterosexual Spiritual care concerns: No Exam Narrative: GENERAL: Well-appearing, well-nourished, and in no acute distress. HEAD: Normocephalic, atraumatic. EYES: PERRLA and EOMI. ENT: Nares clear, no rhinorrhea or epistaxis. Mucous membranes moist. Oropharynx without tonsillar hypertrophy exudate or other lesions. Bilateral TMs pearly mayer non-bulging NECK: Supple. No adenopathy or masses. C-collar in place CHEST: Clear to auscultation. No respiratory distress. No wheezes rales or rhonchi HEART: Regular rate and rhythm. No murmur heard. Normal peripheral pulses. ABDOMEN: Soft, nontender, nondistended, normal active bowel sounds. BACK: No midline spinal tenderness EXTREMITIES: Normal range of motion. No edema or obvious deformity. SKIN: Warm, dry, no rash. NEURO: No focal deficits. Alert and oriented x3. Cranial nerves 2-12 grossly intact PSYCH: Normal mood and affect Course Course Emergency Course: Patient updated on his workup and agrees with plan of care Consultations Consultation #1: Spoke with Cardiology about patient and workup. EKG changes likely due to early repolarization Date: 07/11/23 Vital Signs Vital signs: Vital Signs Temperature 97.8 F 07/11/23 10:37 Pulse Rate 84 07/11/23 10:37 Respiratory Rate 20 07/11/23 10:37 Blood Pressure 141/91 H 07/11/23 10:37 Pulse Oximetry 100 07/11/23 10:37 Oxygen Delivery Room Air 07/11/23 10:37 Temperature 97.7 F 07/11/23 17:35 Pulse Rate 82 07/11/23 17:35 Respiratory Rate 18 07/11/23 17:35 Blood Pressure 127/92 H 07/11/23 17:35 Pulse Oximetry 100 07/11/23 17:35 Oxygen Delivery Room Air 07/11/23 11:30 MDM - Head Injury MDM Narrative Medical decision making narrative: This is a 37 year old male that presents to the ER for right sided shoulder pain, back pain and chest pain after a fall off of a horse today. Patient is neurologically intact. His vitals are stable. CBC with leukocytosis, likely related to trauma. He has no localizing infectious symptoms. He is afebrile. Metabolic
[2023-07-11 11:42] LABS: Basophils Absolute Auto 0.1 K/mm3 (0.0-0.1); Basophils Percent Auto 0.3 % (0.2-1.2); Eosinophils Percent Auto 0.1 % (0-4.4); Hematocrit 45.8 % (42.0-52.0); Hemoglobin 15.5 g/dL (14.0-18.0); Immature Granulocyte Absolute 0.09 K/mm3 (0.00-0.031); Immature Granulocyte Percent A 0.5 % (0-0.5); Lymphocytes Absolute Auto 1.04 K/mm3 (0.9-3.2); Lymphocytes Percent Auto 5.9 % (18.3-44.2); Mean Corpuscular HGB Conc 33.8 g/dl (32-36); Mean Corpuscular Hemoglobin 29.5 pg (26-34); Mean Corpuscular Volume 87.1 fl (80-100); Mean Platelet Volume 12.9 fl (7.4-10.4); Monocytes Absolute Auto 0.8 K/mm3 (0.1-0.6); Monocytes Percent Auto 4.7 % (2.6-8.5); Neutrophils Absolute Auto 15.7 K/mm3 (1.3-6.7); Neutrophils Percent Auto 88.5 % (45.5-73.1); Platelet Count Result 173 k/mm3 (150-375); Red Blood Count 5.26 M/mm3 (4.6-6.20); Red Cell Distribution Width 12.8 % (11.5-14.5); White Blood Count 17.7 K/mm3 (4.5-10.0)
[2023-07-11 11:47] LABS: Estimated CRCL calculation 94 ml/min; Estimated Glomerular Filt Rate > 60
[2023-07-11 11:57] LABS: Alanine Aminotransferase 29 U/L (6-50); Albumin Level 4.5 g/dL (3.5-5.1); Alkaline Phosphatase 97 U/L (38-126); Anion Gap 8 mmol/L (8-16); Aspartate Amino Transferase 41 U/L (17-59); Bilirubin,Total 0.6 mg/dL (0.2-1.3); Blood Urea Nitrogen 17 mg/dL (9-20); Calcium 9.3 mg/dL (8.4-10.2); Carbon Dioxide 26 mmol/L (22-30); Chloride 105 mmol/L (98-107); Estimated CRCL calculation 94 ml/min; Estimated Glomerular Filt Rate > 60; Glucose 105 mg/dL (65-110); Potassium 3.9 mmol/L (3.4-5.0); Sodium 139 mmol/L (137-145)
[2023-07-11 12:07] LABS: Troponin I < 0.012 ng/mL (0.000-0.034)
--- NOTE | 2023-07-11 15:01 | ECG_ITS ---
Measurements Intervals [place] Rate: 83 P: 58 FL: 154 QRS: 54 QRSD: 85 T: 48 QT: 348 QTc: 411 Interpretive Statements SINUS RHYTHM POSSIBLE LEFT ATRIAL ENLARGEMENT [-0.1mV P-WAVE IN V1/V2] ST ELEVATION, PROBABLY EARLY REPOLARIZATION [ST ELEVATION WITH NORMALLY INFLECTED T- WAVE] COMPARED TO ECG 07/11/2023 11:19:57 NO SIGNIFICANT CHANGES Electronically Signed On 07-11-2023 15:52:48 INDUSTRIAL ENERGY ENGINEER by Dinorah Ortiz M.D.
[2023-07-11 15:20] LABS: Troponin I < 0.012 ng/mL (0.000-0.034)
[2023-07-11] MEDS: KETOROLAC 15 MG/ML VIAL (*BKC) IV PUSH (16:31)
--- NOTE | 2023-07-11 16:34 | PC.NURSE ---
no change in assessment. Medicated for pain.
== END 2023-07-11 17:38 | disposition home or self-care (01) ==
PROVIDERS: Emergency Provider Physician Assistant
DX: S49.91XA Unspecified injury of right shoulder and upper arm, initial encounter (principal); D50.9 Iron deficiency anemia, unspecified; Z90.49 Acquired absence of other specified parts of digestive tract; R94.31 Abnormal electrocardiogram [ECG] [EKG]; V80.010A Animal-rider injured by fall from or being thrown from horse in noncollision accident, initial encounter; Y93.52 Activity, horseback riding
CPT/HCPCS: 36415; 70450; 71260; 72125; 72129; 72132; 74177; 80053; 84484; 85025; 93005; 96374; 99284; A4565; J1885; Q9967